=== PATIENT | female | born 1995 | race Caucasian/White ===

== ENCOUNTER 2018-05-20 22:31 | Observation (INO) | payer OTHER, SELFPAY ==
[2018-05-20] MEDS ORDERED: ONDANSETRON 4 MG/2 ML VIAL IV PRN (23:05)
[2018-05-20] MEDS ORDERED: ACETAMINOPHEN 500 MG TAB PO PRN (23:05)
[2018-05-20] MEDS ORDERED: MORPHINE 2 MG/ML SYR IV PRN (23:05)
[2018-05-20 23:50] LABS: Absolute Lymphocytes (CBC) 2.1 K/uL (0.7-4.9); Absolute Monocytes 0.4 K/uL (0.1-1.3); Absolute Neutrophil 6.3 K/uL (1.8-8.0); Basophils % 0.3 % (0-1.3); Eosinophils % 1.2 % (0-4.4); Hematocrit 26.6 % (36.0-45.0); MCH 28.2 pg (27.0-35.0); MCV 83.8 fL (80-100); MPV 8.6 fL (7.6-11.3); RBC Red Blood Cell Count 3.17 M/uL (3.86-4.86)
[2018-05-20 23:51] LABS: Protime INR 0.92
[2018-05-21 00:02] LABS: ALT/SGPT 32 U/L (12-78); AST/SGOT 36 U/L (15-37); Albumin 2.4 g/dL (3.4-5.0); Alkaline Phosphatase 133 U/L (45-117); BUN Blood Urea Nitrogen 7 mg/dL (7-18); Bicarbonate 25 mmol/L (21-32); Bilirubin Total 0.3 mg/dL (0.2-1.0); CKMB Creatine Kinase MB 1.4 ng/mL (0.3-3.6); Creatine Phosphokinase 169 U/L (26-192); Glucose Level 83 mg/dL (74-106); Protein, Total 6.1 g/dL (6.4-8.2); Sodium Level 141 mmol/L (136-145)
[2018-05-21] MEDS ORDERED: SODIUM CHLORIDE 0.9% 10ML INJ IV PRN ×2 (00:26→07:06)
[2018-05-21] MEDS ORDERED: PANTOPRAZOLE 40 MG INJ IVP ONE (00:26)
[2018-05-21] MEDS ORDERED: FUROSEMIDE 20 MG/ 2ML VIAL IV ONE (00:26)
[2018-05-21] MEDS ORDERED: MELATONIN 3 MG TABLET PO SCH (00:26)
[2018-05-21] MEDS ORDERED: ALBUMIN HUMAN 25% 100 ML IV ONE (00:26)
--- NOTE | 2018-05-21 06:32 | RAD REPORT ---
EXAM DESCRIPTION: VAS - Extrem Venous W Compress [place] - 05/21/2018 1:49 am CLINICAL HISTORY: Bilateral leg pain and swelling, recent Preliminary findings provided at the time of the study. COMPARISON: None. TECHNIQUE: Real-time sonographic evaluation of the bilateral lower extremity deep venous systems was performed. FINDINGS: Normal compressibility, flow augmentation, phasic flow and spontaneous flow are identified in the bilateral lower extremity common femoral, superficial femoral, popliteal and posterior tibial veins. No intraluminal filling defects seen. Bilateral calf edema was present. No drainable fluid co llection. IMPRESSION: No DVT in the either lower extremity.
--- NOTE | 2018-05-21 07:05 | P.HP ---
Certification for Inpatient Patient admitted to: Inpatient With expected LOS: >2 Midnights Patient will require the following post-hospital care: None Practitioner: I am a practitioner with admitting privileges, knowledge of patient current condition, hospital course, and medical plan of care. Services: Services provided to patient in accordance with Admission requirements found in Title 42 Section 412.3 of the Code of Federal Regulations Patient History Date of Service: 05/20/18 Reason for admission: Fluid overload History of Present Illness: Patient is a 23-year-old female who came into the hospital with complaints of shortness of breath and volume overload. She has also been slightly short of breath and says she has been vomiting some blood tinged color looking fluid. She says she has had really bad gastroesophageal reflux disease during her . She has been on Prevacid. This has not really helped her. She just delivered on Sunday of this past week. Because the baby was not doing well today had to do an emergent . She says she was given a large volume of fluids and she had fluids running from Sunday through Sunday. Her blood pressure normally runs on the lower side and she had a lower blood pressure through the weekend. She was discharged home and yesterday she started becoming short of breath. She had been taking a large amount of ibuprofen as well. She has been taking 600 mg every 4-6 hours regularly over the last 48 hr. I think this is cause of volume retention as well as possibly some gastritis. She is anemic, age she has significant lower extremity edema. We ordered a stat Doppler of her lower extremity as I did not want to give her blood thinners unnecessarily with the concern for bleeding. The Doppler was negative. She had a CT PE protocol done at the emergency room across the street which was negative as well. Will go ahead and admit her to the hospital and get Cardiology consultation as well as Gastroenterology consultation. We will check thyroid studies this morning as well as check her H&H closely. Allergies No Known Allergies Allergy (Verified 05/20/18 23:25) Home Medications: Acetaminophen 500 mg PO Q4HR 05/20/18 Ferrous Sulfate [Iron] 325 mg PO DAILY 05/20/18 Ibuprofen [Ibu] 600 mg PO Q6HR 05/20/18 - Past Medical/Surgical History Diabetic: No -: none -: (05/17/18 ) - Family History Father Medical History: Heart disease, Hypertension Mother Notes: no history - Social History Smoking Status: Former smoker Alcohol use: Yes CD- Drugs: No Caffeine use: Yes Place of Residence: Home Review of Systems 10-point ROS is otherwise unremarkable Physical Examination - Vital Signs Temperature: 97.5 F Blood Pressure: 139/82 Pulse: 50 Respirations: 18 Pulse Ox (%): 100 - Physical Exam General: Alert, In no apparent distress, Oriented x3 HEENT: Atraumatic, PERRLA, Mucous membr. moist/pink, EOMI, Sclerae nonicteric Neck: Supple, 2+ carotid pulse no bruit, No LAD, Without JVD or thyroid abnormality Respiratory: Clear to auscultation bilaterally, Normal air movement Cardiovascular: Regular rate/rhythm, Normal S1 S2, No murmurs Gastrointestinal: Normal bowel sounds, Soft and benign, Non-distended, No tenderness Musculoskeletal: No tenderness, Swelling, Erythema Integumentary: No rashes Neurological: Normal gait, Normal speech, Normal strength at 5/5 x4 extr, Normal tone, Sensation intact, Cranial nerves 3-12 intact, Normal affect Lymphatics: No axilla or inguinal lymphadenopathy - Studies Laboratory Data (last 24 hrs) 05/20/18 23:26: Troponin I 0.04 05/20/18 23:26: Sodium 141, Potassium 4.0, BUN 7, Creatinine 0.60, Glucose 83, Total Bilirubin 0.3, AST 36, ALT 32, Alkaline Phosphatase 133 H 05/20/18 23:26: PT 10.9, INR 0.92, APTT 30.2 05/20/18 23:26: WBC 8.9, Hgb 8.9 L, Hct 26.6 L, Plt Count 441 H Assessment & Plan - Problems (Diagnosis) (1) Bilateral lower extremity edema Current Visit: Yes Status: Acute (2) Excessive use of nonsteroidal anti-inflammatory drugs (NSAIDs) Current Visit: Yes Status: Acute (3) Gastritis Current Visit: Yes Status: Acute (4) GERD (gastroesophageal reflux disease) Current Visit: Yes Status: Acute (5) HTN (hypertension) Current Visit: Yes Status: Acute (6) Bradycardia Current Visit: Yes Status: Acute (7) Hypoalbuminemia Current Visit: Yes Status: Acute (8) Acute blood loss anemia Current Visit: Yes Status: Acute - Plan Plan: 1. Monitor H&H 2. Gently diurese 3. Cardiology consultation along with echocardiogram 4. Doppler of the lower extremity has been negative 5. Hold anticoagulation 6. GI consultation 7. Check thyroid studies 8. GI and DVT prophylaxis. - Advance Directives Does patient have a Living Will: No Does patient have a Durable POA for Healthcare: No
[2018-05-21] MEDS ORDERED: PANTOPRAZOLE 40 MG INJ IVP SCH (09:00)
--- NOTE | 2018-05-21 10:15 | ECHO ---
HEIGHT: 5 ft 1 in WEIGHT: 168 lb 4.8 oz DATE OF STUDY: 05/21/[address]: Khoa Javier MD 2-DIMENSIONAL: YES M.MODE: YES DOPPLER: YES COLOR FLOW: YES TDS: NO PORTABLE: NO DEFINITY: NO BUBBLE STUDY: NO DIAGNOSIS: CONGESTIVE HEART FAILURE CARDIAC HISTORY: CATHERIZATION: NO SURGERY: NO PROSTHETIC VALVE: NO PACEMAKER: NO MEASUREMENTS (cm) DIASTOLIC (NORMALS) SYSTOLIC (NORMALS) IVSd 0.8 (0.6-1.2) LA Diam 3.6 (1.9-4.0) LVEF 56% LVIDd 4.7 (3.5-5.7) LVIDs 3.4 (2.0-3.5) %FS 29% LVPWd 0.8 (0.6-1.2) Ao Diam 2.5 (2.0-3.7) 2 DIMENSIONAL ASSESSMENT: RIGHT ATRIUM: NORMAL LEFT ATRIUM: NORMAL RIGHT VENTRICLE: NORMAL LEFT VENTRICLE: NORMAL TRICUSPID VALVE: NORMAL MITRAL VALVE: NORMAL PULMONIC VALVE: NORMAL AORTIC VALVE: NORMAL PERICARDIAL EFFUSION: NONE AORTIC ROOT: NORMAL LEFT VENTRICULAR WALL MOTION: NORMAL DOPPLER/COLOR FLOW: MILD MITRAL AND TRICUSPID REGURGITATION. ESTIMATED RIGHT VENTRICULAR SYSTOLIC PRESSURE 40mmHg. MILD PULMONARY HYPERTENSION. ESTIMATED RIGHT ATRIAL PRESSURE 15mmHg. ELEVATED CENTRAL VENOUS PRESSURE. COMMENTS: NORMAL 2D ECHOCARDIOGRAM. MILD MITRAL AND TRICUSPID REGURGITATION. MILD PULMONARY HYPERTENSION WITH ELEVATED CENTRAL VENOUS PRESSURE. TECHNOLOGIST: Deana FERREIRA
--- NOTE | 2018-05-21 11:43 | CON ---
Reason For Consultation: Bradycardia. History Of Present Illness: Ms. Parr is a 23-year-old. She delivered last Sunday, was a full-ter m . She is now 1, para 1. She was being induced when there was distress, so an emergency was done. Postop, she was hypotensive and received large amount of fluids. O patrick the weekend, noticed swelling of her legs, came to the hospital, and also short of breath. Dr. Valerie lopez placed her in the hospital, noted she was bradycardic. She has had blood work showing anemia. T hyroid functions are pending. Electrolytes, BUN, creatinine, blood sugars are all good. She has nev er had diabetes, hypertension. Takes no medicines. Has no drug allergies. Physical Examination: Vital Signs: 5 feet 1 inch, 168 pounds. HEENT: Normal. Lungs: Clear. Heart: Regular rate and rhythm. No murmur, rub, or gallop. Abdomen: Soft. Extremities: 1 to 2+ edema. Distal pulses normal. I think after we see an echocardiogram and thyroid functions, we will be able to decide whether this is situational, just temporary because of fluid overload after mildly trouble delivery or we dealing with cardiomyopathy. So, I will speak with the patient again after thyroid functions and echo are do ne. JEF/JAKY Voice ID: [id number] Report ID: [id number]
[2018-05-21 11:58] LABS: BUN Blood Urea Nitrogen 8 mg/dL (7-18); Bicarbonate 26 mmol/L (21-32); Glucose Level 95 mg/dL (74-106); Phosphorus 3.6 mg/dL (2.5-4.9); Potassium 3.6 mmol/L (3.5-5.1); Sodium Level 145 mmol/L (136-145)
[2018-05-21 12:11] LABS: Absolute Lymphocytes (CBC) 1.9 K/uL (0.7-4.9); Absolute Monocytes 0.4 K/uL (0.1-1.3); Absolute Neutrophil 4.7 K/uL (1.8-8.0); Basophils % 0.5 % (0-1.3); Eosinophils % 1.6 % (0-4.4); Hematocrit 26.3 % (36.0-45.0); Lymphocytes % 26.2 % (15.3-44.8); MCV 82.9 fL (80-100); MPV 8.4 fL (7.6-11.3); Monocytes % 6.1 % (3.3-12.3); RBC Red Blood Cell Count 3.17 M/uL (3.86-4.86)
--- NOTE | 2018-05-21 14:19 | P.DS ---
Admission Date: 05/20/18 Discharge Date: 05/21/18 Disposition: ROUTINE DISCHARGE Discharge Condition: FAIR Reason for Admission: Fluid overload - Problems (1) Bilateral lower extremity edema Status: Acute (2) Cardiomyopathy Onset Date: 05/21/18 Status: Acute (3) Excessive use of nonsteroidal anti-inflammatory drugs (NSAIDs) Status: Acute (4) GERD (gastroesophageal reflux disease) Status: Acute (5) Gastritis Status: Acute (6) HTN (hypertension) Status: Acute Brief History of Present Illness: Patient is a 23-year-old female who came into the hospital with complaints of shortness of breath and volume overload. She has also been slightly short of breath and says she has been vomiting some blood tinged color looking fluid. She says she has had really bad gastroesophageal reflux disease during her . She has been on Prevacid. This has not really helped her. She just delivered on Sunday of this past week. Because the baby was not doing well today had to do an emergent . She says she was given a large volume of fluids and she had fluids running from Sunday through Sunday. Her blood pressure normally runs on the lower side and she had a lower blood pressure through the weekend. She was discharged home and yesterday she started becoming short of breath. She had been taking a large amount of ibuprofen as well. She has been taking 600 mg every 4-6 hours regularly over the last 48 hr. I think this is cause of volume retention as well as possibly some gastritis. She is anemic, age she has significant lower extremity edema. We ordered a stat Doppler of her lower extremity as I did not want to give her blood thinners unnecessarily with the concern for bleeding. The Doppler was negative. She had a CT PE protocol done at the emergency room across the street which was negative as well. Will go ahead and admit her to the hospital and get Cardiology consultation as well as Gastroenterology consultation. We will check thyroid studies this morning as well as check her H&H closely. Hospital Course: She was admitted for fluid overload. She responds well to lLasix. She has small amount of bleeding with vomiting. No active bleedings. ECHO is normal. She is discharged in stable condition, on protonix PO, No NSAID, and f/u GI in 1 week. Vital Signs/Physical Exam: Temp Pulse Resp BP Pulse Ox 98.2 F 53 16 153/87 H 99 05/21/18 11:54 05/21/18 11:54 05/21/18 11:54 05/21/18 11:54 05/21/18 11:54 General: Alert, In no apparent distress HEENT: Atraumatic, PERRLA, EOMI Neck: Supple, JVD not distended Respiratory: Clear to auscultation bilaterally, Normal air movement Cardiovascular: Regular rate/rhythm, Normal S1 S2 Gastrointestinal: Normal bowel sounds, No tenderness Musculoskeletal: No tenderness Integumentary: No rashes Neurological: Normal speech, Normal tone, Normal affect Lymphatics: No axilla or inguinal lymphadenopathy Laboratory Data at Discharge: WBC 7.2 K/uL (4.3-10.9) D 05/21/18 12:00 Hgb 8.9 g/dL (12.0-15.0) L 05/21/18 12:00 Hct 26.3 % (36.0-45.0) L 05/21/18 12:00 Plt Count 418 K/uL (152-406) H 05/21/18 12:00 PT 10.9 SECONDS (9.5-12.5) 05/20/18 23:26 INR 0.92 05/20/18 23:26 APTT 30.2 SECONDS (24.3-36.9) 05/20/18 23:26 Sodium 145 mmol/L (136-145) 05/21/18 11:07 Potassium 3.6 mmol/L (3.5-5.1) 05/21/18 11:07 BUN 8 mg/dL (7-18) 05/21/18 11:07 Creatinine 0.70 mg/dL (0.55-1.3) 05/21/18 11:07 Glucose 95 mg/dL (74-106) 05/21/18 11:07 Phosphorus 3.6 mg/dL (2.5-4.9) 05/21/18 11:07 Magnesium 2.0 mg/dL (1.8-2.4) 05/21/18 11:07 Total Bilirubin 0.3 mg/dL (0.2-1.0) 05/20/18 23:26 AST 36 U/L (15-37) 05/20/18 23:26 ALT 32 U/L (12-78) 05/20/18 23:26 Alkaline Phosphatase 133 U/L (45-117) H 05/20/18 23:26 Troponin I 0.04 ng/mL (0.0-0.045) 05/20/18 23:26 Home Medications: Acetaminophen 500 mg PO Q4HR 05/20/18 Ferrous Sulfate [Iron] 325 mg PO DAILY 05/20/18 Melatonin [Melatonin*] 3 mg PO BEDTIME tablet 05/21/18 Pantoprazole Sodium [Protonix] 40 mg PO DAILY #30 tablet. 05/21/18 New Medications: Pantoprazole Sodium [Protonix] 40 mg PO DAILY #30 tablet. Diet: Regular Activity: Ad james Followup: Sana Fernandez PAC [ALLIED HEALTH PROFESSIONAL] - Chaitanya Villanueva MD [ASSOCIATE-ACTIVE - CAN ADMIT] - 1 Week Time spent managing pt's care (in minutes): 15
[2018-05-21] MEDS ORDERED: ENOXAPARIN 30 MG/0.3 ML SQ SCH (17:00)
--- NOTE | 2018-05-21 21:13 | EKG ---
Test Date: 2018-05-21 Test Time: 07:45:55 Case Making Machine Operator: TWYLA MEASUREMENT RESULTS: Intervals: Rate: 49 [place]: 146 QRSD: 68 QT: 504 QTc: 455 Whittaker: P: 35 [place]: 146 QRS: 14 T: 28 INTERPRETIVE STATEMENTS: Marked sinus bradycardia Low voltage QRS Cannot rule out Anterior infarct, age undetermined Abnormal ECG Compared to ECG 07/05/2016 13:52:12 Low QRS voltage now present Myocardial infarct finding now present Sinus rhythm no longer present Electronically Signed On 05-21-18 21:12:44 CDT by Robbie Lopez
== END 2018-05-21 14:07 | disposition home or self-care (01) ==
LOC: 4TH 22:54
PROVIDERS: ADMIT Hospitalist; ATTEND Internal Medicine Hematology & Oncology
DX: O12.05 Gestational edema, complicating the puerperium (principal); R00.1 Bradycardia, unspecified; O99.63 Diseases of the digestive system complicating the puerperium; K21.9 Gastro-esophageal reflux disease without esophagitis; K29.00 Acute gastritis without bleeding; T39.391A Poisoning by other nonsteroidal anti-inflammatory drugs [NSAID], accidental (unintentional), initial encounter; Y92.009 Unspecified place in unspecified non-institutional (private) residence as the place of occurrence of the external cause; O90.81 Anemia of the puerperium; D62 Acute posthemorrhagic anemia; Z87.891 Personal history of nicotine dependence; I08.1 Rheumatic disorders of both mitral and tricuspid valves
CPT/HCPCS: 36415; 80048; 80053; 82550; 82553; 83735; 84100; 84439; 84443; 84484; 85025; 85379; 85610; 85730; 93005; 93306; 93970; C9113; G0378; J1940; P9047

== ENCOUNTER 2020-08-06 08:29 | Emergency (ER) | payer SELFPAY ==
[2020-08-06 09:31] LABS: Absolute Lymphocytes (CBC) 2.8 K/uL (0.7-4.9); Basophils % 0.6 % (0-1.3); Hematocrit 40.5 % (36.0-45.0); Lymphocytes % 28.6 % (15.3-44.8); RBC Red Blood Cell Count 4.46 M/uL (3.86-4.86)
[2020-08-06 09:38] LABS: Urine Blood NEGATIVE (NEG); Urine Glucose NEGATIVE (NEG); Urine Protein NEGATIVE (NEG); Urine pH 7.5 (5.0-7.0)
[2020-08-06 09:57] LABS: ALT/SGPT 15 U/L (12-78); AST/SGOT 11 U/L (15-37); Albumin 4.2 g/dL (3.4-5.0); Alkaline Phosphatase 58 U/L (45-117); BUN Blood Urea Nitrogen 11 mg/dL (7-18); Bicarbonate 24 mmol/L (21-32); Bilirubin Direct < 0.1 mg/dL (0-0.2); Bilirubin Total 0.2 mg/dL (0.2-1.0); Glucose Level 84 mg/dL (74-106); NT PRO-BNP < 5 pg/mL (<125); Potassium 4.4 mmol/L (3.5-5.1); Protein, Total 7.9 g/dL (6.4-8.2); Sodium Level 140 mmol/L (136-145); Troponin (Emerg Dept Use Only) < 0.02 ng/mL (0.0-0.045)
--- NOTE | 2020-08-06 10:00 | RAD REPORT ---
EXAM DESCRIPTION: RAD - Chest Single View - 08/06/2020 9:32 am CLINICAL HISTORY: Chest tightness/SOB COMPARISON: September 2016 TECHNIQUE: AP portable chest image was obtained 08/06/2020 9:32 am . FINDINGS: Lungs are clear. Heart and vasculature are normal. No measurable pleural effusion and no p neumothorax. No acute bony abnormality seen. No acute aortic findings suspected. IMPRESSION: No acute cardiopulmonary process. No significant change from comparison.
--- NOTE | 2020-08-06 10:24 | EDPHYS ---
Physician Documentation [facility] Name: Kishan Parr Age: 25 yrs Sex: Female : 1995 Arrival Date: 08/06/2020 Time: 08:37 Bed 4 Private MD: ED Physician Peewee Clarke HPI: 08/06 13:34 This 25 yrs old Female presents to ER via Ambulatory with complaints of Chest kdr Tightness. 13:34 The patient or guardian reports chest pain that is located primarily in the anterior kdr chest wall, left, chest diffusely. The pain does not radiate. Associated signs and symptoms: The patient has no apparent associated signs or symptoms. The chest pain is described as aching, a pressure. Duration: The patient or guardian reports multiple episodes, that are intermittent, that wax and wane, with no pattern. Modifying factors: The symptoms are alleviated by nothing. the symptoms are aggravated by nothing. Severity of pain: At its worst the pain was mild in the emergency department the pain has resolved. The patient has not experienced similar symptoms in the past. The patient has not recently seen a physician. 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 - Social history:: Smoking status: Patient reports the use of cigarette tobacco products, 1 pack per week. ROS: 13:34 Constitutional: Negative for fever, chills, and weight loss, Eyes: Negative for injury, kdr pain, redness, and discharge, ENT: Negative for injury, pain, and discharge, Neck: Negative for injury, pain, and swelling, Respiratory: Negative for shortness of breath, cough, wheezing, and pleuritic chest pain, Abdomen/GI: Negative for abdominal pain, nausea, vomiting, diarrhea, and constipation, Back: Negative for injury and pain, : Negative for injury, bleeding, discharge, and swelling, MS/Extremity: Negative for injury and deformity, Skin: Negative for injury, rash, and discoloration, Neuro: Negative for headache, weakness, numbness, tingling, and seizure activity. Psych: Negative for depression, anxiety, suicide ideation, homicidal ideation, and hallucinations, Allergy/Immunology: Negative for hives, rash, and allergies, Endocrine: Negative for neck swelling, polydipsia, polyuria, polyphagia, and marked weight changes, Hematologic/Lymphatic: Negative for swollen nodes, abnormal bleeding, and unusual bruising. 13:34 Cardiovascular: Positive for chest pain, Negative for edema, orthopnea, palpitations. Exam: 13:17 ECG was reviewed by the Attending Physician. kdr 13:34 Constitutional: This is a well developed, well nourished patient who is awake, alert, kdr and in no acute distress. Head/Face: Normocephalic, atraumatic. Eyes: Pupils equal round and reactive to light, extra-ocular motions intact. Lids and lashes normal. Conjunctiva and sclera are non-icteric and not injected. Cornea within normal limits. Periorbital areas with no swelling, redness, or edema. Neck: Trachea midline, no thyromegaly or masses palpated, and no cervical lymphadenopathy. Supple, full range of motion without nuchal rigidity, or vertebral point tenderness. No Meningismus. Chest/axilla: Normal chest wall appearance and motion. Nontender with no deformity. No lesions are appreciated. Cardiovascular: Regular rate and rhythm with a normal S1 and S2. No gallops, murmurs, or rubs. Normal PMI, no JVD. No pulse deficits. Respiratory: Lungs have equal breath sounds bilaterally, clear to auscultation and percussion. No rales, rhonchi or wheezes noted. No increased work of breathing, no retractions or nasal flaring. Abdomen/GI: Soft, non-tender, with normal bowel sounds. No distension or tympany. No guarding or rebound. No evidence of tenderness throughout. Back: No spinal tenderness. No costovertebral tenderness. Full range of motion. Skin: Warm, dry with normal turgor. Normal color with no rashes, no lesions, and no evidence of cellulitis. MS/ Extremity: Pulses equal, no cyanosis. Neurovascular intact. Full, normal range of motion. Neuro: Awake and alert, GCS 15, oriented to person, place, time, and situation. Cranial nerves II-XII grossly intact. Motor strength 5/5 in all extremities. Sensory grossly intact. Cerebellar exam normal. Normal gait. Psych: Awake, alert, with orientation to person, place and time. Behavior, mood, and affect are within normal limits. Vital Signs: 08:48 BP 113 / 60; Pulse 81; Resp 16 S; Pulse Ox 100% on R/A; Weight 60.78 kg; Height 5 ft. 1 iw in. (154.94 cm); Pain 8/10; 10:07 BP 105 / 72; Pulse 86; Resp 18; Pulse Ox 98% on R/A; em 08:48 Body Mass Index 25.32 (60.78 kg, 154.94 cm) iw MDM: 10:22 Patient medically screened. kdr 13:34 Data reviewed: vital signs, nurses notes, lab test result(s), radiologic studies. kdr Counseling: I had a detailed discussion with the patient and/or guardian regarding: the historical points, exam findings, and any diagnostic results supporting the discharge/admit diagnosis, lab results, radiology results, the need for outpatient follow up. 08/06 09:02 Order name: D-Dimer; Complete Time: 10: kdr 08/06 09:02 Order name: Basic Metabolic Panel; Complete Time: 10: kdr 08/06 09:02 Order name: CBC with Diff; Complete Time: 10: kdr 08/06 09:03 Order name: LFT's; Complete Time: 10: kdr 08/06 09:03 Order name: Magnesium; Complete Time: 10: kdr 08/06 09:03 Order name: NT PRO-BNP; Complete Time: 10: kdr 08/06 09:03 Order name: Troponin (emerg Dept Use Only); Complete Time: 10: kdr 08/06 09:03 Order name: XRAY Chest (1 view); Complete Time: 10: kdr 08/06 09:03 Order name: EKG; Complete Time: : kdr 08/06 09:03 Order name: Cardiac monitoring; Complete Time: 09:14 kdr 08/06 09:03 Order name: EKG - Nurse/Tech; Complete Time: 09: kdr 08/06 09:03 Order name: IV Saline Lock; Complete Time: 09:14 kdr 08/06 09:21 Order name: Urine Dipstick--Ancillary (enter results); Complete Time: 10:21 em1 08/06 09:21 Order name: Urine --Ancillary (enter results); Complete Time: 10: em1 08/06 09:03 Order name: Labs collected and sent; Complete Time: : kdr 08/06 09:03 Order name: O2 Per Protocol; Complete Time: : kdr 08/06 09:03 Order name: O2 Sat Monitoring; Complete Time: : [facility] EC:17 Rate is 73 beats/min. Rhythm is regular, Sinus Rhythm with No ectopy. QRS Cushing is kdr Normal. NE interval is normal. QRS interval is normal. QT interval is normal. Clinical impression: NSR w/ Non-specific ST/T Changes. Administered Medications: No medications were administered Disposition: 08/06/20 10:22 Discharged to Home. Impression: Chest pain, unspecified, Dyspnea, Shortness of breath. - Condition is Stable. - Discharge Instructions: Shortness of Breath, [id number], Nonspecific Chest Pain, [id number]. - Medication Reconciliation Form, Thank You Letter form. - Follow up: Private Physician; When: 2 - 3 days; Reason: If symptoms return, Further diagnostic work-up, Recheck today's complaints, Continuance of care, Re-evaluation by your physician. - Problem is new. - Symptoms have improved. Signatures: Dispatcher [employer] EDPeewee Martinez MD MD kdr Yovany Haas, ROSALINDA RN em Sinai Burch RN RN iw Corrections: (The following items were deleted from the chart) 10:23 10:22 08/06/2020 10:22 Discharged to Home. Impression: Chest pain, unspecified. kdr Condition is Stable. Forms are Medication Reconciliation Form, Thank You Letter, Antibiotic Education, Prescription Opioid Use. Follow up: Private Physician; When: 2 - 3 days; Reason: If symptoms return, Further diagnostic work-up, Recheck today's complaints, Continuance of care, Re-evaluation by your physician. Problem is new. Symptoms have improved. kdr 10:24 10:23 08/06/2020 10:22 Discharged to Home. Impression: Chest pain, unspecified; kdr Dyspnea. Condition is Stable. Forms are Medication Reconciliation Form, Thank You Letter, Antibiotic Education, Prescription Opioid Use. Follow up: Private Physician; When: 2 - 3 days; Reason: If symptoms return, Further diagnostic work-up, Recheck today's complaints, Continuance of care, Re-evaluation by your physician. Problem is new. Symptoms have improved. kdr 10:48 10:24 08/06/2020 10:22 Discharged to Home. Impression: Chest pain, unspecified; em Dyspnea; Shortness of breath. Condition is Stable. Discharge Instructions: Nonspecific Chest Pain, [id number]. Forms are Medication Reconciliation Form, Thank You Letter, Antibiotic Education, Prescription Opioid Use. Follow up: Private Physician; When: 2 - 3 days; Reason: If symptoms return, Further diagnostic work-up, Recheck today's complaints, Continuance of care, Re-evaluation by your physician. Problem is new. Symptoms have improved. kdr
--- NOTE | 2020-08-06 10:24 | ER ---
Nurse's Notes [facility] Name: Kishan Parr Age: 25 yrs Sex: Female : 1995 Arrival Date: 08/06/2020 Time: 08:37 Bed 4 Private MD: Diagnosis: Chest pain, unspecified;Dyspnea;Shortness of breath Presentation: 08/06 08:46 Chief complaint: Patient states: has hx of cardiomyopathy, started having chest iw tightness a few weeks ago, got worse this morning, now feels like she can't get a good breath in, denies cough or fever. Coronavirus screen: Ebola Screen: Patient negative for fever greater than or equal to 101.5 degrees Fahrenheit, and additional compatible Ebola Virus Disease symptoms Patient denies exposure to infectious person. Patient denies travel to an Ebola-affected area in the 21 days before illness onset. No symptoms or risks identified at this time. Initial Sepsis Screen: Does the patient meet any 2 criteria? No. Patient's initial sepsis screen is negative. Does the patient have a suspected source of infection? No. Patient's initial sepsis screen is negative. Risk Assessment: Do you want to hurt yourself or someone else? Patient reports no desire to harm self or others. Onset of symptoms was July 22, 2020. 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 - Social history:: Smoking status: Patient reports the use of cigarette tobacco products, 1 pack per week. Screenin:00 Abuse screen: Denies threats or abuse. Nutritional screening: No deficits noted. em Tuberculosis screening: No symptoms or risk factors identified. Fall Risk None identified. Assessment: 09:00 General: Appears in no apparent distress. comfortable, Behavior is calm, cooperative, em appropriate for age, Denies fever. Pain: Complains of pain in mid-sternal area Pain does not radiate. Quality of pain is described as tightness Pain began weeks ago. Neuro: Level of Consciousness is awake, alert, obeys commands, Oriented to person, place, time, situation, Appropriate for age. Cardiovascular: Reports shortness of breath, Capillary refill < 3 seconds Patient's skin is warm and dry. Rhythm is sinus rhythm. Respiratory: Airway is patent Respiratory effort is even, unlabored, Respiratory pattern is regular, symmetrical. GI: Patient currently denies nausea, vomiting. Derm: Skin is intact. Musculoskeletal: Capillary refill < 3 seconds, Range of motion: intact in all extremities. 10:10 Reassessment: Patient appears in no apparent distress at this time. Patient and/or em family updated on plan of care and expected duration. Pain level reassessed. Patient is alert, oriented x 3, equal unlabored respirations, skin warm/dry/pink. Vital Signs: 08:48 BP 113 / 60; Pulse 81; Resp 16 S; Pulse Ox 100% on R/A; Weight 60.78 kg; Height 5 ft. 1 iw in. (154.94 cm); Pain 8/10; 10:07 BP 105 / 72; Pulse 86; Resp 18; Pulse Ox 98% on R/A; em 08:48 Body Mass Index 25.32 (60.78 kg, 154.94 cm) iw ED Course: 08:37 Patient arrived in ED. as 08:45 Peewee Clarke MD is Attending Physician. kdr 08:46 Yovany Haas, RN is Primary Nurse. em 08:48 Triage completed. iw 09:00 Patient has correct armband on for positive identification. Bed in low position. Call em light in reach. Side rails up X2. court monitor on. Pulse ox on. NIBP on. 09:10 Initial lab(s) drawn, by me, sent to lab. Inserted saline lock: 20 gauge in right em antecubital area, using aseptic technique. Blood collected. Patient maintains SpO2 saturation greater than 95% on room air. 09:33 XRAY Chest (1 view) In Process Unspecified. EDMS 10:47 No provider procedures requiring assistance completed. IV discontinued, intact, em bleeding controlled, No redness/swelling at site. Pressure dressing applied. Administered Medications: No medications were administered Outcome: 10:22 Discharge ordered by . kdr 10:47 Discharged to home ambulatory. em 10:47 Condition: stable 10:47 Discharge instructions given to patient, Instructed on discharge instructions, follow up and referral plans. Demonstrated understanding of instructions, follow-up care. 10:48 Patient left the ED. em Signatures: Dispatcher [employer] Peewee Luther MD MD kdr Munoz, Edgar, RN RN Jazmine Esocbar Irene, RN RN iw
[2020-08-06 10:57] VITALS: BP 105/72; O2SAT 98
--- NOTE | 2020-08-06 17:51 | EKG ---
Test Date: 2020-08-06 Test Time: 08:49:28 Pleating Machine Operator: JOHNNY MEASUREMENT RESULTS: Intervals: Rate: 73 [place]: 122 QRSD: 66 QT: 376 QTc: 414 [place]: P: 25 [place]: 122 QRS: 30 T: 26 INTERPRETIVE STATEMENTS: Normal sinus rhythm with sinus arrhythmia Normal ECG Compared to ECG 05/21/2018 07:45:55 Sinus bradycardia no longer present Myocardial infarct finding no longer present Electronically Signed On 08-06-20 17:49:57 CDT by Jim Mccall
== END 2020-08-06 10:48 | disposition home or self-care (01) ==
LOC: ER 08:29
DX: R06.00 Dyspnea, unspecified (principal); R06.02 Shortness of breath; F17.210 Nicotine dependence, cigarettes, uncomplicated
CPT/HCPCS: 36415; 71045; 80048; 80076; 81003; 81025; 83735; 83880; 84484; 85025; 85379; 93005; 99285

== ENCOUNTER 2022-07-05 15:16 | Emergency (ER) | payer SELFPAY ==
--- OUTSIDE RECORDS SUMMARY | 2022-07-05 15:19 | XMS REPORT | Continuity of Care Document ---
:1995 Author Organization [facility] t Address [address] [place] [address] Care Team Providers Name Role Phone PCP, PATIENT DOES NOT HAVE A Primary Care Physician Unavaila Garrett [place] Attending Clinician Unavailable MURTAZA LAYNE Attending Clinician Unavailable Murtaza Layne MD Attending Clinician Diony Hicks Attending Clinician Unavailable Lauryn Page MD Attending Clinician LAURYN PAGE Attending Clinician Unavailable Garrett Tse Admitting Clinician Unavailable MURTAZA LAYNE Admitting Clinician Unavailable Diony Hicks Admitting Clinician Unavailable Lauryn Page MD Admitting Clinician LAURYN PAGE Admitting Clinician Unavailable Trinity Méndez Admitting Clinician Unavailable Payers Payer Name Policy Type Policy Number Effective Date Expiration Date [facility] [id number] 2021 CHOICE MEDICAID 00:00:00 Problems Condition Condition Condition Status Onset Resolution Last Treating Co mments Source Name Details Category Date Date Treatment Clinician Date Urinary Urinary Disease Active Univers tract tract 6-08 [place] of [place] mother 00 [facility] during during Branch , , antepartum antepartum Disease Active Univers uterine uterine 604 [place] of [place] 00 [facility] third third Branch trimester, trimester, antepartum antepartum Acute Acute Disease Active Univers cystitis cystitis 604 ity of with with 00:00: [place] hematuria hematuria 00 [facility] Branch Acute left Acute left Disease Active U nivers flank pain flank pain 6-04 it y of 00:00: [place] 00 Medical Branch 29 weeks 29 weeks Disease Active Unive rs gestation gestation 604 ity of of of 00:00: [place] 00 [facility] Allergies, Adverse Reactions, Alerts Allergy Allergy Status Severity Reaction(s) Onset Inactive Treating Comm ents Source Name Type Date Date Clinician No Known DA Active U 2020-10 [facility] 00 [facility] No Known DA Active U [facility] All[facility]ie 8-09 [facility] 00:[facility]: [facility] 00 [facility] No Known DA Active U [facility] Allergie 8-09 [facility] 00:[facility]: [facility] 00 [facility] NO KNOWN Drug Active Univers ALLERGIE Class ity of S [facility] Social History Social Habit Start Date Stop Date Quantity Comments Source Exposure to 2022-04-16 2022-04-26 Not sure [facility] SARS-CoV-2 (event) 00:00:00 21:58:00 Medica l Branch Sex Assigned At [birth year] [facility] y of [place] 00:00:00 00:00:00 Medical Branch Smoking Status Start Date Stop Date Source Tobacco smoking consumption Univ [facility] Medical unknown Branch Medications Ordered Filled Start Stop Current Ordering Indication Dosage Frequency Signature Comments Components Source Medication Medication Date Date Medication? Clinician (SIG) Name Name No known No No known Unive rs medications 7-20 medication it y of 19:30: [place] [address] Medical Branch No known No Univers medications 9-17 ity of 20:46: [place] 14 Medical Branch No known No Univers medications 9-17 ity of 20:46: [address] Vital Signs Vital Name Observation Time Observation Value Comments Source Systolic blood 2022-04-27 01:00:00 104 mm[Hg] Univer sity of pressure [facility] Diastolic blood 2022-04-27 01:00:00 74 mm[Hg] Unive rsity of pressure [facility] Heart rate 2022-04-27 01:00:00 81 /min Universi ty of [facility] Respiratory rate 2022-04-27 01:00:00 18 /min Univ ersity of [facility] Oxygen saturation in 2022-04-27 01:00:00 100 /min University of Arterial blood by [facility] francis Pulse oximetry Branch Body temperature 2022-04-26 23:32:00 37.44 Marisol Univ ersity of [facility] Body height 2022-04-26 23:32:00 154.9 cm Universi ty of [facility] Body weight 2022-04-26 23:32:00 58.968 kg Universi ty of [facility] BMI 2022-04-26 23:32:00 24.56 kg/m2 Universi ty of [facility] Heart rate 2021-06-25 01:15:00 75 /min Universi ty of [facility] Oxygen saturation in 2021-06-25 01:10:00 100 /min University of Arterial blood by [facility] Pulse oximetry Branch Systolic blood 2021-06-24 23:45:00 109 mm[Hg] Univer sity of pressure [facility] Diastolic blood 2021-06-24 23:45:00 62 mm[Hg] Unive rsity of pressure [facility] Body temperature 2021-06-24 23:45:00 37.39 Marsiol Univ ersity of [facility] Respiratory rate 2021-06-24 23:20:00 16 /min Univ ersity of [facility] Body height 2021-06-24 23:20:00 154.9 cm Universi ty of [place] [facility] [place] Body weight 2021-06-24 23:20:00 66.679 kg [facility]i ty [facility] [place] [facility] [place] BMI 2021-06-24 23:20:00 27.78 kg/m2 Universi ty of [facility] Procedures Procedure Date / Time Performed Performing Clinician Sourc e URINALYSIS 2022-04-27 01:21:00 Murtaza Layne [facility] TROPONIN I 2022-04-27 00:23:00 Murtaza Layne [facility] BASIC METABOLIC PANEL 2022-04-27 00:23:00 Murtaza Layne [facility] (NA, K, CL, CO2, Medical Branch GLUCOSE, BUN, CREATININE, CA) CBC WITH DIFF 2022-04-27 00:23:00 Murtaza Layne [facility] D-DIMER 2022-04-27 00:23:00 Murtaza Layne [facility] XR CHEST 1 VW 2022-04-27 00:18:34 Murtaza Layne [facility] CONSENT/REFUSAL FOR 2022-04-26 23:26:40 Doctor Unassigned, [facility] AND Name [facility] Branch TREATMENT [id number] 2021-09-03 00:00:00 PIETER [facility] COVID-19 (ID NOW RAPID 2021-06-25 00:42:00 Lauryn Page [facility] TESTING) Medical Branch NOTICE OF PRIVACY 2021-06-24 23:13:22 Doctor Unassigned, No [facility] PRACTICES Name Medical Branch CONSENT/REFUSAL FOR 2021-06-24 23:11:45 [facility]assigned, [facility] AND Name [facility] Branch TREATMENT Encounters Start End Encounter Admission Attending Care Care Encounter Source Date/Time Date/Time Type Type Clinicians Facility Department ID 2021-09-07 Inpatient HAMLET Tse [facility] [id number] [facility] 10:00:[address] [place] [address]'s [facility] 2022-04-26 2022-04-26 Emergency X ROVERTO [facility] ERT [id number] Univers 18:42:00 22:00:00 MURTAZA olivas [facility] 2022-04-26 2022-04-26 Emergency Roverto [facility] [id number] Univers 18:42:00 22:00:00 Murtaza SINGH [id number] i [facility] [id number] [facility] [id number] [facility] 084 Branch 2021-09-03 2021-09-05 Emergency EM LIBORIO Hicks OBPP [id number] [facility] 01:41:00 19:53:00 Ziad [facility] [place] 2021-08-31 2021-08-31 Inpatient LIBORIO Leon RADI [id number] [facility] 11:15:00 11:15:00 Ziad 97 [facility] [place] 2021-08-18 2021-08-18 Emergency EM LIBORIO Hicks [place] [id number] [facility] 17:35:00 21:43:00 Ziad 87 [facility] [place] 2021-06-24 2021-06-24 Emergency Lauryn Page [facility] [id number] [facility] 18:26:00 20:53:00 [place] [id number] i [facility] [id number] [facility] [id number] [place] [id number] [place] 2021-06-24 2021-06-24 Outpatient X LAURYN PAGE [facility] JAIME [id number] [facility] 18:26:00 18:26:00 ity of [facility] 2021-04-18 2021-04-18 Outpatient HAMLET Hicks [facility] RADI [id number] [facility] 11:03:00 11:03:00 Ziad [facility] Results Test Description Test Time Test Comments Results Result Comments Source SURGICAL 2021-09-12 17:25:00 Test Item Value Reference Range Interpretation Commjose hatfield SURGICAL RUN (test DATE: 09/12/21 [facility] PAGE 1 RUN TIME: 1725 Specimen Inquiry RUN USER: INTERFACE code = EMMANUEL SR) NT: NABILA MEJIAS ACCT #: [id number] LOC: W[place]ER U #: [id number] AGE/SX: 26/ ROOM: 2007 RE09/03/21REG DR: Diony Hicks MD : [birth year] BED: A DIS: 09/05/21 STATUS: DIS IN TLOC: SPEC #: [id number] RECD: 08/09 STATUS: [facility] RE #: [id number] JORGE L: 09/02/21- SUBM DR: Diony Hicks MD ENTERED: SP TYPE: SURGICAL OTHR DR: DOES_NOT KNOW ORDERED: ANATOMIC SPEC, SPEC TRACK, [id number] CODES: [id number] - PLACENTA, NOS COPIES TO: DOES_NOT KNOW Diony Hicks MD [address] [place] [address] PROCEDURES: [id number] (09/12/21-172) TISSUES: PETEY CENTA, NOS - PP CARDIOMYOPATHY, IAB 120, FINAL DIAGNOSIS PLACENTA :- Mature villous morphology, 6 05 grams, ( 90th percentile for gestational age). - Mild multifocal villitis of undetermined quincy ology.- Three vessel umbilical cord with no significant diagnostic abnormalities. - membr anes with abundant pigmented amnionic macrophages. GROSS DESCRIPTION Received in formalin is a si ngleton placenta with the placental disc measuring 19 x 19 x 2cm and weighing 605 gm with a 1.4 c m in diameter by 15 cm length eccentric 3 cm from edge,3 vessel cord with appropriate spiraling. The membranes are [place] and opaque with marginalinsertion with the site of rupture 1 cm from the petey cental disc. The placental disc has abeefy red cut surface with no gross lesions. Representativ e sections are submitted asfollows: A1: Membrane roll and cordA2: Full thickness placental dis cA3: Full thickness placental disc at edge LC Technical component performed at [facility],[place] [address] , [place] [address] Unless gross only, the diagnosis is based upon microscopic examination. CONTINUED ON NE XT PAGE RUN DATE: 09/12/21 [facility] RUN TIME: 1725 Specimen Inquiry RUN USER: INTERFACE SPEC #: [id number] PATIENT: NABILA MEJIAS #[id number] (Continued) ------ GROSS DESCRIPTION (Co ntinued) Immunohistochemistry: This test was developed and its performance characteristicsd etermined by this laboratory. It has not been approved nor does it need approval by Heather FDA. Appropriate positive and negative controls are reviewed and judged to beacceptable. This laborator y is certified under the Clinical Laboratory ImprovementAmendments (CLIA-88) as qualified to pe [facility] high complexity clinical laboratory testing. CLINICAL INFORMATION PRE-C Signed [address] 09/12/21 1725 END OF REPORT HGB [id number] 04:48:00 Test Item Value Reference Range Interpretation Comments HEMOGLOBIN (test code = HGB) 7.7 g/dL 10.1-13.8 L HEMATOCRIT (test code = HCT) 23.8 % 32.5-41.8 L CAPILLARY BLOOD [id number] 03:26:00 Test Item Value Reference Range Interpretation Comments CAPILLARY BLOOD GAS PH (test code 7.376 7.35-7.45 N = PHC) CAPILLARY BLOOD GAS PCO2 (test 34.4 mmHg code = PCO2C) CAPILLARY BLOOD GAS PO2 (test code 22.7 mmHg = PO2C) CBG HCO3 (test code = HCO3C) 19.7 meq/L CBG BASE EXCESS (test code = BEC) -4.6 CBG O2 SATURATION (test code = 38.6 % SATC) CAPILLARY BLOOD GAS TYPE (test CBLV code = TYPEC) CAPILLARY BLOOD GAS FIO2 (test 21.0 % code = FIO2C) ARTERIAL BLOOD [id number] 03:26:00 Test Item Value Reference Range Interpretation Comments ARTERIAL BLOOD GAS PH (test code = 7.200 7.35-7.45 L PHA) ARTERIAL BLOOD GAS PCO2 (test code 57.9 mmHg 35-45 H = PCO2A) ARTERIAL BLOOD GAS PO2 (test code 16.5 mmHg 80-100 LL = PO2A) BICARBONATE TOTAL HCO3 (test code 22.1 meq/L 22-26 N = HCO3) BASE EXCESS (test code = YUSEF) -6.7 -2.0-+2.0 L ABG O2 SATURATION (test code = 16.4 % 95-100 L SATA) ABG OXIMETRY (test code = OXA) 16.4 % sat ABG TYPE (test code = TYPEA) Arterial FIO2 (test code = FIO2A) 21.0 % PaO2/[id number] 03:26:00 Test Item Value Reference Range Interpretation Comments PaO2/FiO2 (test code = [id number]) 78.50 mm/Hg AG HEPATITIS B [id number] 17:32:00 Test Item Value Reference Range Interpretation Comments AG HEPATITIS B SURFACE (test code NONREACTIVE NONREACTIVE = HBSAG) AB HEPATITIS C [id number] 17:32:00 Test Item Value Reference Range Interpretation Comments AB HEPATITIS C (test code = NONREACTIVE NONREACTIVE HCVAB) SIGNAL TO CUTOFF (test code = <0.02 <0.80 N CUTOFF) AB [id number] 17:32:00 Test Item Value Reference Range Interpretation Comments AB TREPONEMA (test code = TREPAB) NONREACTIVE NONREACTIVE AB HIV 1 17:32:00 Test Item Value Reference Range Interpretation Comments AB HIV 1 2 (test NONREACTIVE NONREACTIVE Done by [facility] [employer] code = [id number]) 4th Gen HIV Ag/Ab Combo Screen COVID 19 Asymptomatic IH [id number] 17:16:00 Test Item Value Reference Range Interpretation Comments COVID 19 NEGATIVE NEGATIVE This test has b een Asymptomatic IH AG authorize d only for the (test code = detection ofpro teins from COVNONPUIAG) SARS-CoV-2, not for any other viruses orpathogens. Ne gative results should be treated as presumptive andconfirmed wi th a molecular assay , if necessary for patientmanageme nt. Negative result s do not rule out COVID- 19 andshould not b e used as the sole basis for treatment orpat ient management deci sions, including infec tion controldecision s. Negative result s should be considered i n thecontext of a patient's recent exposure s, history and thepresence of clinical signs and symptoms consis tent withCOVID-19. T his test has not been FD A cleared or approved; th e test hasbeen authori jaycob by FDA under an Emerge ncy Use Authorization(E UA) for use by laborato ngozi certified under the CLIA thatmeet the re quirements to perform mode rate, high or waivedcomple xity tests. This gerber t is authorized for use at thePoint of Car e (POC), i.e., in patien t care settingsoperati ng under a CLIA Certificat e of Waiver, Certifi raya ofCompliance, o r Certificate of Accreditation. This test is only authori jaycob for the duration of thedeclaration that circumstances e xist justifying theauthorizatio n of emergency use o f in vitro diagnostic test sfor detection and/o r diagnosis of CO VID-19 under [id number] 4(b)(1) of the Act, 21 U.S .C. 360bbb-3(b)(1), unless theauthorizatio n is terminated or r evoked sooner. CBC W/AUTO [id number] 15:14:00 Test Item Value Reference Range Interpretation Comments WHITE BLOOD CELL (test code = WBC) 10.0 K/mm3 6.5-12.3 N RED BLOOD CELL (test code = RBC) 3.14 M/mm3 3.51-4.69 L HEMOGLOBIN (test code = HGB) 8.9 g/dL 10.1-13.8 L HEMATOCRIT (test code = HCT) 26.8 % 32.5-41.8 L MEAN CELL VOLUME (test code = MCV) 85.4 fL 84.6-96.6 N MEAN CELL HGB (test code = MCH) 28.3 pg 27.3-33.9 N MEAN CELL HGB CONCETRATION (test 33.2 gm/dL 32.0-34.2 N code = MCHC) RED CELL DISTRIBUTION WIDTH (test 13.0 % 12.2-16.3 N code = RDW) PLATELET COUNT (test code = PLT) 383 K/mm3 134-363 H MEAN PLATELET VOLUME (test code = 9.9 fL 9.2-12.7 N MPV) NEUTROPHIL % (test code = NT%) 74.4 % 57.9-77.3 N LYMPHOCYTE % (test code = LY%) 18.4 % 14.5-29.7 N MONOCYTE % (test code = MO%) 6.1 % 3.6-10.2 N EOSINOPHIL % (test code = EO%) 0.3 % 0.0-3.0 N BASOPHIL % (test code = BA%) 0.3 % 0.1-0.9 N NEUTROPHIL # (test code = NT#) 7.4 K/mm3 LYMPHOCYTE # (test code = LY#) 1.8 K/mm3 MONOCYTE # (test code = MO#) 0.6 K/mm3 EOSINOPHIL # (test code = EO#) 0.03 K/mm3 BASOPHIL # (test code = BA#) 0.0 K/mm3 RBC MORPHOLOGY REQUIRED (test code NORMAL NORMAL = RBCM) PLATELET MORPHOLOGY REQUIRED (test NORMAL NORMAL code = PLTMR) URINALYSIS [id number] 20:22:00 Test Item Value Reference Range Interpretation Comments UA COLOR (test code = COLU) YELLOW YELLOW UA APPEARANCE (test code = Slightly-Cloudy CLEAR APPU) UA GLUCOSE DIPSTICK (test NEGATIVE NEG code = DGLUU) UA BILIRUBIN DIPSTICK (test NEGATIVE NEG code = BILU) UA KETONE DIPSTICK (test code NEGATIVE NEG = KETU) UA SPECIFIC GRAVITY (test 1.028 1.001-1.035 N code = SGU) UA BLOOD DIPSTICK (test code NEG NEG = TIGIST) UA PH DIPSTICK (test code = 6.0 5-9 CHOCO) UA PROTEIN DIPSTICK (test NEGATIVE NEG code = PROU) UA UROBILINIOGEN DIPSTICK 2.0 mg/dL NEG (test code = URO) UA NITRITE DIPSTICK (test NEG NEG code = ANDREW) UA LEUKOCYTE ESTERASE NEG NEG DIPSTICK (test code = LEUU) UA WBC (test code = WBCU) 0-2 #/hpf NONE SEEN UA RBC (test code = RBCU) 0-2 #/hpf NONE SEEN UA EPITHELIAL CELLS (test FEW #/HPF RARE-FEW code = EPIU) UA BACTERIA (test code = NEGATIVE /HPF RARE-FEW BACU) UA MUCUS (test code = MUCU) 1+ NONE SEEN RUPTURE OF [id number] 18:38:00 Test Item Value Reference Range Interpretation Comments RUPTURE OF MEMBRANES (test code NON-RUPTURED = ROM) - US FET BIO PH MD W/O [id number] 00:00:00 [facility] : 1995 Sex: F Patient Name: NABILA MEJIAS Unit No: [id number] EXAMS: CPT CODE: [id number] US FET BIO PH MD W/O NST 32929 PROCEDURE INFORMATION: Exam: US Biophysical Profile Without Non-Stress Test Exam date and time: 08/18/2021 7:27 PM Age: 26 years old Clinical indication: Other: Leaking of fluid; ; Additional info: Leakage of fluid 35 weeks gestation TECHNIQUE: Imaging protocol: US biophysical profile without non-stress testing. COMPARISON: No relevant prior studies available. FINDINGS: Gestation: A single live intrauterine is identified currently in breech position with heart tones of122 bpm. Anterior grade 2 placenta is seen. No placenta previa identified. The cervix measures 4.7 cm length. Amniotic fluid index measures 24.5 cm. BIOPHYSICAL PROFILE: Breathin/2 Gross body movements: 2/2 tone: 2/2 Qualitative amniotic fluid: 2/2 Biophysical Profile Score: 8/8 IMPRESSION: 1. Biophysical profile score of 8/8. 2. Polyhydramnios. at 2006 Reported and signed by: Niels Arcos MD CC: Diony Hicks MD; Caryl Rand Jhajj DO; Kris Wild III, MD Technologist: Reza Mccauley RDMS Probe: Trnscrbd D/ (2005) GCD.CPS Orig Print D/T: S: 08/19/2021 (1525) [facility] NAME: NABILA MEJIAS Radiology Department PHYS: Kris Gilbert III, MD [address] : 1995 AGE: 26 SEX: F [place] [address] LOC: Luis.[place] PHONE #: [phone] EXAM DATE: 08/18/2021 STATUS: DEP ER FAX #: [phone] RAD NO: Page 1 Signed Report Patient Name: RANDELLNABILA Unit No: [id number] EXAMS: CPT CODE: [id number] [facility] BIO PH MD W/O NST 68687 (Continued) [facility] NAME: NABILA MEJIAS Radiology Department PHYS: Kris Gilbert III, MD [address] : 1995 AGE: 26 SEX: F [place] [address] LOC: Luis.[place] PHONE #: [phone] EXAM DATE: 08/18/2021 STATUS: DEP ER FAX #: [phone] RAD NO: Page 2 Signed Report
[2022-07-05] MEDS ORDERED: LIDOCAINE VISCOUS 2% SOLN 15 ML UDC ONE (15:49)
[2022-07-05] MEDS ORDERED: FAMOTIDINE 20 MG/2 ML VIAL IV ONE (15:49)
[2022-07-05] MEDS ORDERED: MAGNES/ALUMIN/SIMET 30ML UCUP ONE (15:49)
[2022-07-05 16:04] LABS: Urine Blood Negative (Negative); Urine Glucose Negative (Negative); Urine Protein Negative (Negative); Urine Specific Gravity 1.015 (1.005-1.030); Urine pH 5.5 (5.0-7.0)
[2022-07-05 16:10] LABS: Absolute Lymphocytes (CBC) 1.8 K/uL (0.7-4.9); Hematocrit 38.7 % (36.0-45.0); Lymphocytes % 27.5 % (15.3-44.8); MCV 84.9 fL (80-100); MPV 7.5 fL (7.6-11.3); RBC Red Blood Cell Count 4.56 M/uL (3.86-4.86)
[2022-07-05 16:21] LABS: Albumin 4.3 g/dL (3.4-5.0); Bilirubin Total 0.4 mg/dL (0.2-1.0); Potassium 3.5 mmol/L (3.5-5.1)
--- NOTE | 2022-07-05 16:54 | RAD REPORT ---
EXAM DESCRIPTION: CT - Abdomen Pelvis W Contrast - 07/05/2022 4:42 pm CLINICAL HISTORY: Abdominal pain COMPARISON: none. TECHNIQUE: Computed axial tomography of the abdomen pelvis was obtained. 100 cc Isovue-300 was admin istered intravenously. Oral contrast was not requested which limits evaluation of bowel and appendix All CT scans are performed using dose optimization technique as appropriate and may include automated exposure control or mA/KV adjustment according to patient size. FINDINGS: The liver, spleen, pancreas, adrenal and kidneys appear unremarkable. There is no evidence of diverticulitis. Small umbilical hernia. No adnexal mass. Trace amount of free fluid. Fluid is present throughout nondilated small bowel. The appendix is borderline dilated. No stranding within the adjacent fat IMPRESSION: Fluid throughout nondilated small bowel may indicate enteritis Borderline dilatation of the appendix with no stranding within the adjacent fat. My suspicion for vanessa endicitis is relatively low. If this is a strong clinical concern then a CT scan with oral contrast a nd opacification of the terminal ileum/cecum may be helpful
[2022-07-05 17:02] LABS: Urine Specific Gravity/Preg 1.015 (1.005-1.030)
--- NOTE | 2022-07-05 17:26 | ER ---
Nurse's Notes [facility] Name: Kishan Parr Age: 27 yrs Sex: Female : 1995 Arrival Date: 07/05/2022 Time: 15:19 Bed 12 Private MD: Diagnosis: Abdominal pain, unspecified;Vomiting, unspecified Presentation: 07/05 15:38 Chief complaint: Patient states: mid abd pain above belly button X 4 days, feels like a iw knot or tightening , pain is intermittent, +nausea. Coronavirus screen: At this time, the client does not indicate any symptoms associated with coronavirus-19. Ebola Screen: Patient negative for fever greater than or equal to 101.5 degrees Fahrenheit, and additional compatible Ebola Virus Disease symptoms Patient denies exposure to infectious person. Patient denies travel to an Ebola-affected area in the 21 days before illness onset. No symptoms or risks identified at this time. Initial Sepsis Screen: Does the patient meet any 2 criteria? No. Patient's initial sepsis screen is negative. Does the patient have a suspected source of infection? No. Patient's initial sepsis screen is negative. Risk Assessment: Do you want to hurt yourself or someone else? Patient reports no desire to harm self or others. Onset of symptoms was July 01, 2022. 15:38 Method Of Arrival: Ambulatory iw 15:38 Acuity: [place] 3 iw Historical: - Allergies: 15:39 No Known Allergies; iw - Home Meds: 15:39 None [Active]; iw - PMHx: 15:39 cardiomyopathy; iw - PSHx: 15:39 section; iw - Immunization history:: Client reports having NOT received the Covid vaccine. - Social history:: Smoking status: Patient reports the use of cigarette tobacco products. - Family history:: not pertinent. - Hospitalizations: : No recent hospitalization is reported. Screenin:06 Abuse screen: Denies threats or abuse. Denies injuries from another. Nutritional iw screening: No deficits noted. Tuberculosis screening: No symptoms or risk factors identified. Fall Risk IV access (20 points). Assessment: 16:05 General: Appears in no apparent distress. Behavior is calm, cooperative. Pain: iw Complains of pain in abdomen. Neuro: Level of Consciousness is awake, alert, obeys commands, Oriented to person, place, time, situation, Moves all extremities. Full function. GI: Abdomen is flat, non-distended, Bowel sounds present X 4 quads. Abd is soft X 4 quads Reports lower abdominal pain, upper abdominal pain, nausea. Derm: Skin is intact, is healthy with good turgor. Musculoskeletal: Range of motion: intact in all extremities. 17:30 Reassessment: Patient appears in no apparent distress at this time. Patient and/or hb family updated on plan of care and expected duration. Pain level reassessed. Patient is alert, oriented x 3, equal unlabored respirations, skin warm/dry/pink. Vital Signs: 15:38 BP 105 / 72; Pulse 84; Resp 16; Pulse Ox 100% on R/A; Weight 58.97 kg; Height 5 ft. 1 iw in. (154.94 cm); 17:30 BP 112 / 70; Pulse 80; Resp 16; Pulse Ox 99% on R/A; hb 15:38 Body Mass Index 24.56 (58.97 kg, 154.94 cm) iw ED Course: 15:19 Patient arrived in ED. mr 15:34 Junito Pandey MD is Attending Physician. rn 15:34 Molina Pascal is PHCP. jl9 15:38 Sinai Burch, ROSALINDA is Primary Nurse. iw 15:39 Triage completed. iw 15:40 Arm band placed on. iw 15:50 Initial lab(s) drawn, by me, sent to lab. Urine collected: clean catch specimen. iw Inserted saline lock: 22 gauge in left antecubital area, using aseptic technique. Blood collected. 16:44 CT Abd/Pelvis - IV Contrast Only In Process Unspecified. EDMS 17:30 Patient has correct armband on for positive identification. hb 17:45 No provider procedures requiring assistance completed. IV discontinued, intact, hb bleeding controlled, No redness/swelling at site. Administered Medications: 16:00 Drug: GI Cocktail without - (Maalox Suspension 30 ml, Lidocaine Liquid 2 % 15 iw ml) Route: PO; 17:00 Follow up: Response: No adverse reaction hb 16:04 Drug: Pepcid (famotidine) 20 mg Route: IVP; Site: left antecubital; iw 16:50 Follow up: Response: No adverse reaction hb 17:49 Drug: Zofran (Ondansetron) 4 mg Route: IVP; Site: left antecubital; 17:50 Follow up: Response: Medication administered at discharge. Medication: 17:30 VIS not applicable for this client. Outcome: 17:25 Discharge ordered by . rn 17:45 Discharged to home ambulatory. 17:45 Condition: stable 17:45 Discharge instructions given to patient, Instructed on discharge instructions, follow up and referral plans. medication usage, Demonstrated understanding of instructions, follow-up care, medications, Prescriptions given X 1. 17:51 Patient left the ED. Signatures: Dispatcher [employer] [facility] Shanna Schultz Irene, RN Junito Hinojosa MD MD rn Baxter, Heather, RN RN hb Linares, John jl9
--- NOTE | 2022-07-05 17:26 | EDPHYS ---
Physician Documentation [facility] Name: Kishan Parr Age: 27 yrs Sex: Female : 1995 Arrival Date: 07/05/2022 Time: 15:19 Bed 12 Private MD: ED Physician Junito Pandey HPI: 07/05 16:24 This 27 yrs old Female presents to ER via Ambulatory with complaints of Abdominal Pain, rn Nausea/Vomiting. 16:24 The patient presents to the emergency department with nausea, vomiting, abdominal pain, rn of the epigastric area and left upper quadrant. Onset: The symptoms/episode began/occurred 4 day(s) ago. Possible causes: unknown. The symptoms are aggravated by nothing. The symptoms are alleviated by nothing. Associated signs and symptoms: Pertinent positives: abdominal pain, nausea, vomiting, Pertinent negatives: fever, GI bleeding. Severity of symptoms: At their worst the symptoms were mild in the emergency department the symptoms are unchanged. The patient has not experienced similar symptoms in the past. The patient has not recently seen a physician. Historical: - Allergies: 15:39 No Known Allergies; iw - Home Meds: 15:39 None [Active]; iw - PMHx: 15:39 cardiomyopathy; iw - PSHx: 15:39 section; iw - Immunization history:: Client reports having NOT received the Covid vaccine. - Social history:: Smoking status: Patient reports the use of cigarette tobacco products. - Family history:: not pertinent. - Hospitalizations: : No recent hospitalization is reported. ROS: 16:24 Constitutional: Negative for fever, chills, and weight loss, Eyes: Negative for injury, rn pain, redness, and discharge, Neck: Negative for injury, pain, and swelling, Cardiovascular: Negative for chest pain, palpitations, and edema, Respiratory: Negative for shortness of breath, cough, wheezing, and pleuritic chest pain, Abdomen/GI: +abd pain and nausea Back: Negative for injury and pain, MS/Extremity: Negative for injury and deformity, Skin: Negative for injury, rash, and discoloration, Neuro: Negative for headache, weakness, numbness, tingling, and seizure. Exam: 16:24 Constitutional: This is a well developed, well nourished patient who is awake, alert, rn and in no acute distress. Head/Face: Normocephalic, atraumatic. Cardiovascular: Regular rate and rhythm. No pulse deficits. Respiratory: No increased work of breathing, no retractions or nasal flaring. Abdomen/GI: soft, mild epigastric and LUQ tenderness Skin: Warm, dry MS/ Extremity: Pulses equal, no cyanosis. Neuro: Awake and alert, GCS 15 Vital Signs: 15:38 BP 105 / 72; Pulse 84; Resp 16; Pulse Ox 100% on R/A; Weight 58.97 kg; Height 5 ft. 1 iw in. (154.94 cm); 17:30 BP 112 / 70; Pulse 80; Resp 16; Pulse Ox 99% on R/A; hb 15:38 Body Mass Index 24.56 (58.97 kg, 154.94 cm) iw MDM: 15:34 Patient medically screened. rn 17:22 Differential diagnosis: Nonspecific abd pain, gastritis, cholecystitis, pancreatitis, rn appendicitis, diverticulitis, viral gastroenteritis, gastroenteritis. Data reviewed: vital signs, nurses notes, lab test result(s), radiologic studies, CT scan, and as a result, I will discharge patient. Counseling: I had a detailed discussion with the patient and/or guardian regarding: the historical points, exam findings, and any diagnostic results supporting the discharge/admit diagnosis, lab results, radiology results, the need for outpatient follow up, to return to the emergency department if symptoms worsen or persist or if there are any questions or concerns that arise at home. Response to treatment: the patient's symptoms have mildly improved after treatment, and as a result, I will discharge patient. 17:23 ED course: CT shows enteritis and commented on borderline appendix but Dr. Jimenez rn states low probability of appendicitis and no stranding. Normal WBC. No fever. Offered patient repeat CT with oral contrast after going through results with her, she declines, states wants to go home and will return if gets worse. Understands risks. . 07/05 15:46 Order name: CBC with Diff; Complete Time: 16:24 rn 07/05 15:46 Order name: CMP; Complete Time: 16:24 rn 07/05 15:46 Order name: Lipase; Complete Time: 16:24 rn 07/05 15:46 Order name: CT Abd/Pelvis - IV Contrast Only; Complete Time: 17:04 rn 07/05 16:04 Order name: Urine --Ancillary (enter results); Complete Time: 17:04 3 07/05 16:04 Order name: Urine Dipstick-Ancillary; Complete Time: 16:24 EDMS 07/05 15:46 Order name: IV Saline Lock; Complete Time: 16:00 rn 07/05 15:46 Order name: Labs collected and sent; Complete Time: 16:00 rn 07/05 15:46 Order name: Urine Dipstick-Ancillary (obtain specimen); Complete Time: 16:00 rn 07/05 15:46 Order name: Urine Test (obtain specimen); Complete Time: 16:05 rn Administered Medications: 16:00 Drug: GI Cocktail without - (Maalox Suspension 30 ml, Lidocaine Liquid 2 % 15 iw ml) Route: PO; 17:00 Follow up: Response: No adverse reaction hb 16:04 Drug: Pepcid (famotidine) 20 mg Route: IVP; Site: left antecubital; iw 16:50 Follow up: Response: No adverse reaction hb 17:49 Drug: Zofran (Ondansetron) 4 mg Route: IVP; Site: left antecubital; hb 17:50 Follow up: Response: Medication administered at discharge. hb Disposition Summary: 07/05/22 17:25 Discharge Ordered Location: Home rn Problem: new rn Symptoms: have improved rn Condition: Stable rn Diagnosis - Abdominal pain, unspecified rn - Vomiting, unspecified rn Followup: rn - With: Private Physician - When: As needed - Reason: Recheck today's complaints, Re-evaluation by your physician Discharge Instructions: - Discharge Summary Sheet rn - Abdominal Pain, Adult rn - Nausea and Vomiting, Adult rn Forms: - Medication Reconciliation Form rn - Thank You Letter rn - Antibiotic unit manager rn - Prescription Opioid Use rn Prescriptions: - ondansetron 4 mg Oral tablet,disintegrating - take 1 tablet by ORAL route every 6-8 hours As needed; 15 tablet; Refills: 0, rn Product Selection Permitted Signatures: Dispatcher [employer] Sinai Redman, RN RN iw Junito Pandey MD MD rn Baxter, Heather, RN RN hb
[2022-07-05] MEDS ORDERED: ONDANSETRON 4 MG/2 ML VIAL ONE (17:43)
[2022-07-07 11:11] VITALS: BP 112/70; O2SAT 99
== END 2022-07-05 17:51 | disposition home or self-care (01) ==
LOC: ER 15:16
DX: R10.13 Epigastric pain (principal); R11.2 Nausea with vomiting, unspecified; F17.210 Nicotine dependence, cigarettes, uncomplicated
CPT/HCPCS: 36415; 74177; 80053; 81003; 81025; 83690; 85025; 96374; 96375; 99284; J2405; Q9967

== ENCOUNTER 2022-07-07 11:57 | Emergency (ER) | payer OTHER, SELFPAY ==
--- OUTSIDE RECORDS SUMMARY | 2022-07-07 12:01 | XMS REPORT | Continuity of Care Document ---
:1995 Author Organization [facility] t Address [address] [place] [address] Care Team Providers Name Role Phone PCP, [...] Type Policy Number Effective Date Expiration Date [facility] [id number] 2021 CHOICE MEDICAID 00:00:00 Problems Condition Condition Condition Status Onset Resolution Last Treating Co mments Source Name Details Category Date Date Treatment Clinician Date Urinary Urinary Disease Active Univers tract tract 6-08 ity of infection [place] mother 00 [facility] during during Branch , , antepartum antepartum Disease Active Univers uterine uterine 604 ity of [place] 00 [facility] third third Branch trimester, trimester, antepartum antepartum Acute Acute Disease Active Univers cystitis cystitis 604 ity of with with 00:00: [place] hematuria hematuria 00 [facility] Branch Acute left Acute left Disease Active U nivers flank pain flank pain 6-04 it y of 00:00: [place] 00 Medical Branch 29 weeks 29 weeks Disease Active Unive rs gestation gestation 604 ity of of of 00:00: [place] 00 [facility] Allergies, Adverse Reactions, Alerts Allergy Allergy Status Severity Reaction(s) Onset Inactive Treating Comm ents Source Name Type Date Date Clinician No Known DA Active U 2020-10 [facility]11 [facility] 00 [facility] No Known DA Active U [facility] All[facility]ie 8-09 [facility] 00 [facility] No Known DA Active U [facility] Allergie 8-09 [facility] 00:[facility]: [facility] 00 [facility] NO KNOWN Drug Active Univers ALLERGIE Class ity of S [facility] Social History Social Habit Start Date Stop Date Quantity Comments Source Exposure to 2022-04-16 2022-04-26 Not sure [facility] SARS-CoV-2 (event) 00:00:00 21:58:00 Medica l Branch Sex Assigned At [birth year] [facility] y of [place] 00:00:00 00:00:00 Medical Branch Smoking Status Start Date Stop Date Source Tobacco smoking consumption Univ [facility] Medical unknown Branch Medications Ordered Filled Start Stop Current Ordering Indication Dosage Frequency Signature Comments Components Source Medication Medication Date Date Medication? Clinician (SIG) Name Name No known No No known Unive rs medications 7-20 medication it y of 19:30: s [place] [address] Medical Branch No known No Univers medications 9-17 ity of 20:46: [place] 14 Medical Branch No known No Univers medications 9-17 ity of 20:46: [address] Vital Signs Vital Name Observation Time Observation Value Comments Source Systolic blood 2022-04-27 01:00:00 104 mm[Hg] Univer sity of pressure [facility] Diastolic blood 2022-04-27 01:00:00 74 mm[Hg] Unive rsity of pressure [facility] Heart rate 2022-04-27 01:00:00 81 /min Universi ty of [facility] Respiratory rate 2022-04-27 01:00:00 18 /min Univ ersity of [facility] Oxygen saturation in 2022-04-27 01:00:00 100 /min University of Arterial blood by [facility] francis Pulse oximetry Branch Body temperature 2022-04-26 23:32:00 37.44 Marisol Univ ersity of [facility] Body height 2022-04-26 23:32:00 154.9 cm Universi ty of [facility] Body weight 2022-04-26 23:32:00 58.968 kg Universi ty of [facility] BMI 2022-04-26 23:32:00 24.56 kg/m2 Universi ty of [facility] Heart rate 2021-06-25 01:15:00 75 /min Universi ty of [facility] Oxygen saturation in 2021-06-25 01:10:00 100 /min University of Arterial blood by [facility] Pulse oximetry Branch Systolic blood 2021-06-24 23:45:00 109 mm[Hg] Univer sity of pressure [facility] Diastolic blood 2021-06-24 23:45:00 62 mm[Hg] Unive rsity of pressure [facility] Body temperature 2021-06-24 23:45:00 37.39 Marisol Univ ersity of [facility] Respiratory rate 2021-06-24 23:20:00 16 /min Univ ersity of [facility] Body height 2021-06-24 23:20:00 154.9 cm [facility] [place] [facility] [place] Body weight 2021-06-24 23:20:00 66.679 kg [facility] [place] [facility] [place] BMI 2021-06-24 23:20:00 27.78 kg/m2 Universi ty of [facility] Procedures Procedure Date / Time Performed Performing Clinician Sourc e URINALYSIS 2022-04-27 01:21:00 Murtaza Layne [facility] TROPONIN I 2022-04-27 00:23:00 Murtaza Layne [facility] BASIC METABOLIC PANEL 2022-04-27 00:23:00 Murtaza Layne [facility] (NA, K, CL, CO2, Medical Branch GLUCOSE, BUN, CREATININE, CA) CBC WITH DIFF 2022-04-27 00:23:00 Murtaza Layne [facility] D-DIMER 2022-04-27 00:23:00 Murtaza Layne [facility] XR CHEST 1 VW 2022-04-27 00:18:34 Murtaza Layne [facility] CONSENT/REFUSAL FOR 2022-04-26 23:26:40 [facility] Branch TREATMENT [id number] 2021-09-03 00:00:00 PIETER [facility] COVID-19 (ID NOW RAPID 2021-06-25 00:42:00 Lauryn Page [facility] TESTING) Medical Branch NOTICE OF PRIVACY 2021-06-24 23:13:22 Doctor Unassigned, No [facility] PRACTICES Name Medical Branch CONSENT/REFUSAL FOR 2021-06-24 23:11:45 [facility], [facility] Name [facility] Branch TREATMENT Encounters Start End Encounter Admission Attending Care Care Encounter Source Date/Time Date/Time Type Type Clinicians Facility Department ID 2021-09-07 Inpatient HAMLET Tse [facility] [id number] [facility] 10:00:[address] [place] [address]'s [facility] 2022-04-26 2022-04-26 Emergency X ROVERTO [facility] ERT [id number] Univers 18:42:00 22:00:00 MURTAZA olivas [facility] 2022-04-26 2022-04-26 Emergency Roverto [facility] [id number] Univers 18:42:00 22:00:00 Murtaza SINGH [id number] i [facility] [id number] [facility] [id number] [facility] 084 Branch 2021-09-03 2021-09-05 Emergency EM LIBORIO Hicks OBPP [id number] [facility] 01:41:00 19:53:00 Ziad [facility] [place] 2021-08-31 2021-08-31 Inpatient LIBORIO Leon RADI [id number] [facility] 11:15:00 11:15:00 Ziad 97 [facility] [place] 2021-08-18 2021-08-18 Emergency EM LIBORIO Hicks [place] [id number] [facility] 17:35:00 21:43:00 Ziad 87 [facility] [place] 2021-06-24 2021-06-24 Emergency Lauryn Page [facility] [id number] [facility] 18:26:00 20:53:00 [place] [id number] i [facility] [id number] [facility] [id number] [place] [id number] [place] 2021-06-24 2021-06-24 Outpatient X LAURYN PAGE [facility] JAIME [id number] [facility] 18:26:00 18:26:00 ity of [facility] 2021-04-18 2021-04-18 Outpatient HAMLET Hicks [facility] RADI [id number] [facility] 11:03:00 11:03:00 Ziad 79 [facility] Results Test Description Test Time Test Comments Results Result Comments Source SURGICAL 2021-09-12 17:25:00 Test Item Value Reference Range Interpretation Commjose hatfield SURGICAL RUN (test DATE: 09/12/21 [facility] PAGE 1 RUN TIME: 1725 Specimen Inquiry RUN USER: INTERFACE code = EMMANUEL SR) NT: NABILA MEJIAS ACCT #: [id number] LOC: W[place]ER U #: [id number] AGE/SX: 26/ ROOM: 2005 RE09/03/21REG DR: Diony Hicks MD : 93 BED: A DIS: 09/05/21 STATUS: DIS IN TLOC: SPEC #: [id number] RECD: 08/09 STATUS: [facility] RE #: [id number] JORGE L: 09/02/21- SUBM DR: Diony Hicks MD ENTERED: SP TYPE: SURGICAL OTHR DR: DOES_NOT KNOW ORDERED: ANATOMIC SPEC, SPEC TRACK, [id number] CODES: [id number] - PLACENTA, NOS COPIES TO: DOES_NOT KNOW Diony Hicks MD [address] [place] [address] PROCEDURES: [id number] (09/12/21-172) TISSUES: [facility], NOS - PP [...] at edge LC Technical component performed at [place] [address] [address] , [place] [address] Unless gross only, the diagnosis is based upon microscopic examination. CONTINUED ON NE XT PAGE RUN DATE: 09/12/21 [facility] RUN TIME: 1725 Specimen Inquiry RUN USER: INTERFACE SPEC #: [id number] PATIENT: NABILA MEJIAS #[id number] (Continued) ------ GROSS DESCRIPTION (Co ntinued) Immunohistochemistry: This test was developed and its performance characteristicsd etermined by this laboratory. It has not been approved nor does it need approval by Heather FDA. Appropriate positive and negative controls are reviewed and judged to beacceptable. This laborator y is certified under the Clinical Laboratory ImprovementAmendments (CLIA-88) as qualified to pe [facility] high complexity clinical laboratory testing. CLINICAL INFORMATION PRE-C Signed [address] 09/12/21 1725 END OF REPORT HGB [id number] 04:48:00 Test Item Value Reference Range Interpretation Comments HEMOGLOBIN (test code = HGB) 7.7 g/dL 10.1-13.8 L HEMATOCRIT (test code = HCT) 23.8 % 32.5-41.8 L CAPILLARY BLOOD [id number] 03:26:00 Test Item Value Reference Range Interpretation [...] 21.0 % code = FIO2C) ARTERIAL BLOOD [id number] 03:26:00 Test Item Value Reference Range Interpretation [...] FIO2 (test code = FIO2A) 21.0 % PaO2/[id number] 03:26:00 Test Item Value Reference Range Interpretation Comments PaO2/FiO2 (test code = DHP8BKO1) 78.50 mm/Hg AG HEPATITIS B [id number] 17:32:00 Test Item Value Reference Range Interpretation Comments AG HEPATITIS B SURFACE (test code NONREACTIVE NONREACTIVE = HBSAG) AB HEPATITIS C [id number] 17:32:00 Test Item Value Reference Range Interpretation Comments AB HEPATITIS C (test code = NONREACTIVE NONREACTIVE HCVAB) SIGNAL TO CUTOFF (test code = <0.02 <0.80 N CUTOFF) AB [id number] 17:32:00 Test Item Value Reference Range Interpretation Comments AB TREPONEMA (test code = TREPAB) NONREACTIVE NONREACTIVE AB HIV 1 17:32:00 Test Item Value Reference Range Interpretation Comments AB HIV 1 2 (test NONREACTIVE NONREACTIVE Done by [facility] code = [id number]) 4th Gen HIV Ag/Ab Combo Screen COVID 19 Asymptomatic IH [id number] 17:16:00 Test Item Value Reference Range Interpretation [...] and/o r diagnosis of CO VID-19 under Ftqxxzd64 4(b)(1) of the Act, 21 U.S .C. 360bbb-3(b)(1), unless theauthorizatio n is terminated or r evoked sooner. CBC W/AUTO [id number] 15:14:00 Test Item Value Reference Range Interpretation [...] (test NORMAL NORMAL code = PLTMR) URINALYSIS [id number] 20:22:00 Test Item Value Reference Range Interpretation [...] = MUCU) 1+ NONE SEEN RUPTURE OF [id number] 18:38:00 Test Item Value Reference Range Interpretation Comments RUPTURE OF MEMBRANES (test code NON-RUPTURED = ROM) - US FET BIO PH DE W/O [id number] 00:00:00 [facility] : 1995 Sex: F Patient Name: NABILA MEJIAS Unit No: [id number] EXAMS: CPT CODE: [id number] US FET BIO PH DE W/O NST 84146 PROCEDURE INFORMATION: Exam: US Biophysical Profile Without [...] Orig Print D/T: S: 08/19/2021 (1525) [facility] NAME: NABILA MEJIAS Radiology Department PHYS: Kris Gilbert III, MD [address] : 1995 AGE: 26 SEX: F [place] [address] LOC: Luis.[place] PHONE #: [phone] EXAM DATE: 08/18/2021 STATUS: DEP ER FAX #: [phone] RAD NO: Page 1 Signed Report Patient Name: RANDELLNABILA Unit No: [id number] EXAMS: CPT CODE: [id number] [facility] BIO PH DE W/O NST 60457 (Continued) [facility] NAME: NABILA MEJIAS Radiology Department PHYS: Kris Gilbert III, MD [address] : 1995 AGE: 26 SEX: F [place] [address] LOC: Luis.[place] PHONE #: [phone] EXAM DATE: 08/18/2021 STATUS: DEP ER FAX #: [phone] RAD NO: Page 2 Signed Report
[2022-07-07 12:27] LABS: Urine Blood Negative (Negative); Urine Glucose Negative (Negative); Urine Protein Negative (Negative); Urine Specific Gravity 1.025 (1.005-1.030)
[2022-07-07 12:40] LABS: Urine Specific Gravity/Preg 1.025 (1.005-1.030)
[2022-07-07 13:06] LABS: Absolute Lymphocytes (CBC) 1.8 K/uL (0.7-4.9); Hematocrit 34.5 % (36.0-45.0); Lymphocytes % 30.4 % (15.3-44.8); MCV 84.5 fL (80-100); MPV 7.7 fL (7.6-11.3); RBC Red Blood Cell Count 4.09 M/uL (3.86-4.86)
[2022-07-07] MEDS ORDERED: DICYCLOMINE HCL 10 MG CAP ONE (13:17)
[2022-07-07] MEDS ORDERED: ONDANSETRON 4 MG/2 ML VIAL ONE (13:17)
[2022-07-07 13:20] LABS: Bilirubin Total 0.6 mg/dL (0.2-1.0); Protein, Total 7.4 g/dL (6.4-8.2)
--- NOTE | 2022-07-07 15:24 | RAD REPORT ---
EXAM DESCRIPTION: CTAbdomen Pelvis W Contrast - 07/07/2022 3:09 pm CLINICAL HISTORY: Vomiting and diarrhea COMPARISON: Abdomen Pelvis W Contrast dated 07/05/2022 TECHNIQUE: CT of the abdomen and pelvis was performed. All CT scans are performed using dose optimization technique as appropriate and may include automated exposure control or mA/KV adjustment according to patient size. FINDINGS: Lower chest: No acute abnormality. Liver: No acute abnormality or suspicious lesions. Biliary: No biliary ductal dilatation. Stomach: No significant focal abnormality. Duodenum: No significant focal abnormality. Pancreas: No significant abnormality. Spleen: No significant abnormality. Adrenal: No suspicious lesions. Kidney/ureter: No hydronephrosis. No renal calculi. Retroperitoneum: No retroperitoneal adenopathy. Vascular: No aneurysm. Bowel: Scattered air-fluid levels in the colon.. Peritoneum: No ascites or free air. Bladder: Grossly unremarkable. Reproductive: No adnexal masses. Bones: No acute fracture. Other: n/a IMPRESSION: No acute intra-abdominal or pelvic finding. Normal appendix. Air-fluid levels in the col on likely representing diarrheal disease. No bowel obstruction.
--- NOTE | 2022-07-07 15:50 | EDPHYS ---
Physician Documentation [facility] Name: Kishan Parr Age: 27 yrs Sex: Female : 1995 Arrival Date: 07/07/2022 Time: 12:00 Bed 4 Private MD: ED Physician Peewee Clarke HPI: 07/07 15:47 This 27 yrs old Female presents to ER via Ambulatory with complaints of jl9 abdominal cramping and diarrhea. Seen here for similar complaint recently. . 15:47 The patient presents with abdominal pain that is diffuse. Onset: The symptoms/episode jl9 began/occurred 1 week(s) ago. The symptoms do not radiate. Associated signs and symptoms: Pertinent positives: diarrhea. The symptoms are described as crampy. Modifying factors: The symptoms are alleviated by nothing, the symptoms are aggravated by nothing. Severity of pain: in the emergency department the pain is a 3 / 10. 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 Last tetanus immunization: < 5 years ago. - Social history:: Smoking status: Patient reports the use of cigarette tobacco products, smokes one-half pack cigarettes per day. ROS: 15:48 Constitutional: Negative for fever, chills, and weight loss, Eyes: Negative for injury, jl9 pain, redness, and discharge, ENT: Negative for injury, pain, and discharge, Neck: Negative for injury, pain, and swelling, Cardiovascular: Negative for chest pain, palpitations, and edema, Respiratory: Negative for shortness of breath, cough, wheezing, and pleuritic chest pain. 15:48 Back: Negative for injury and pain, : Negative for injury, bleeding, discharge, and swelling, MS/Extremity: Negative for injury and deformity, Skin: Negative for injury, rash, and discoloration, Neuro: Negative for headache, weakness, numbness, tingling, and seizure, Psych: Negative for depression, anxiety, suicide ideation, homicidal ideation, and hallucinations, Allergy/Immunology: Negative for hives, rash, and allergies, Endocrine: Negative for neck swelling, polydipsia, polyuria, polyphagia, and marked weight changes, Hematologic/Lymphatic: Negative for swollen nodes, abnormal bleeding, and unusual bruising. 15:48 Abdomen/GI: Positive for abdominal pain, diarrhea. Exam: 15:49 Constitutional: This is a well developed, well nourished patient who is awake, alert, jl9 and in no acute distress. Head/Face: Normocephalic, atraumatic. Eyes: Pupils equal round and reactive to light, extra-ocular motions intact. Lids and lashes normal. Conjunctiva and sclera are non-icteric and not injected. Cornea within normal limits. Periorbital areas with no swelling, redness, or edema. ENT: Mucous membranes moist. Neck: Trachea midline, no thyromegaly or masses palpated, and no cervical lymphadenopathy. Supple, full range of motion without nuchal rigidity, or vertebral point tenderness. No Meningismus. Chest/axilla: Normal chest wall appearance and motion. Nontender with no deformity. No lesions are appreciated. Cardiovascular: Regular rate and rhythm with a normal S1 and S2. No gallops, murmurs, or rubs. Normal PMI, no JVD. No pulse deficits. Respiratory: Lungs have equal breath sounds bilaterally, clear to auscultation and percussion. No rales, rhonchi or wheezes noted. No increased work of breathing, no retractions or nasal flaring. 15:49 Back: No spinal tenderness. No costovertebral tenderness. Full range of motion. Skin: Warm, dry with normal turgor. Normal color with no rashes, no lesions, and no evidence of cellulitis. MS/ Extremity: Pulses equal, no cyanosis. Neurovascular intact. Full, normal range of motion. Neuro: Awake and alert, GCS 15, oriented to person, place, time, and situation. Cranial nerves II-XII grossly intact. Motor strength 5/5 in all extremities. Sensory grossly intact. Cerebellar exam normal. Normal gait. Psych: Awake, alert, with orientation to person, place and time. Behavior, mood, and affect are within normal limits. 15:49 Abdomen/GI: Inspection: abdomen appears normal, Bowel sounds: normal, Palpation: mild abdominal tenderness, in all quadrants. Vital Signs: 12:17 BP 104 / 76; Pulse 88; Resp 20; Temp 98.7; Pulse Ox 100% ; Weight 58.97 kg; Height 5 kb3 ft. 1 in. (154.94 cm); Pain 9/10; 13:09 BP 102 / 80; Pulse 73; Resp 16; Pulse Ox 100% on R/A; Pain 0/10; mb9 13:52 BP 112 / 91; Pulse 71; Resp 16; Pulse Ox 100% on R/A; Pain 0/10; mb9 15:59 BP 113 / 80; Pulse 68; Resp 16; Pulse Ox 100% on R/A; Pain 0/10; mb9 12:17 Body Mass Index 24.56 (58.97 kg, 154.94 cm) kb3 MDM: 12:41 Patient medically screened. [facility] 15:49 Data reviewed: vital signs, nurses notes. Counseling: I had a detailed discussion with [facility] the patient and/or guardian regarding: the historical points, exam findings, and any diagnostic results supporting the discharge/admit diagnosis, lab results, radiology results, the need for outpatient follow up, to return to the emergency department if symptoms worsen or persist or if there are any questions or concerns that arise at home. Response to treatment: the patient's symptoms have markedly improved after treatment. 07/07 12:27 Order name: Urine Dipstick-Ancillary; Complete Time: 12:40 EDMS 07/07 12:38 Order name: Urine --Ancillary (enter results) eb 07/07 12:40 Order name: CBC with Diff [facility] 07/07 12:40 Order name: CMP [facility] 07/07 12:40 Order name: Lipase [facility] 07/07 12:41 Order name: Urine --Ancillary; Complete Time: 12:52 EDMS 07/07 12:40 Order name: IV Saline Lock; Complete Time: 13:01 [facility] 07/07 12:52 Order name: CT Abd/Pelvis - PO and IV Contrast [facility] 07/07 13:08 Order name: CBC with Automated Diff; Complete Time: 14:53 EDMS 07/07 13:20 Order name: Comprehensive Metabolic Panel; Complete Time: 14:53 EDMS 07/07 13:20 Order name: Lipase; Complete Time: 14:53 EDMS 07/07 15:25 Order name: CT; Complete Time: 15:43 [facility] 07/07 12:40 Order name: Labs collected and sent; Complete Time: 13:01 jl9 Administered Medications: 13:20 Drug: Ondansetron 4 mg Route: IVP; Site: right antecubital; mb9 13:25 Drug: Bentyl (dicyclomine) 20 mg Route: PO; mb9 Disposition: 19:03 Co-signature as Attending Physician, Peewee Clarke MD I agree with the assessment and kdr plan of care. Chart complete. Disposition Summary: 07/07/22 15:50 Discharge Ordered Location: Home jl9 Condition: Stable jl9 Diagnosis - Abdominal pain, unspecified jl9 Followup: jl9 - With: Private Physician - When: 1 - 2 days - Reason: Recheck today's complaints, Continuance of care, Re-evaluation by your physician Discharge Instructions: - Discharge Summary Sheet jl9 - Abdominal Pain, Adult, [id number]-[id number] jl9 Forms: - Medication Reconciliation Form jl9 - Thank You Letter jl9 - Antibiotic Education jl9 - Prescription Opioid Use jl9 Prescriptions: - ondansetron 8 mg Oral tablet,disintegrating - take 1 tablet by ORAL route every 8 hours As needed; 15 tablet; Refills: 0, jl9 Product Selection Permitted - dicyclomine 20 mg Oral Tablet - take 1 tablet by ORAL route 3 times per day As needed; 30 tablet; Refills: 0, jl9 Product Selection Permitted Signatures: Dispatcher [employer] [facility] Peewee Clarke MD MD kdr Linares, John jl9 Saundra Alvarez RN RN kb3 Shanna Nash RN RN mb9 Corrections: (The following items were deleted from the chart) 12:21 12:20 PMHx: cardiomyopathy; kb3 kb3
--- NOTE | 2022-07-07 15:50 | ER ---
Nurse's Notes [facility] Name: Kishan Parr Age: 27 yrs Sex: Female : 1995 Arrival Date: 07/07/2022 Time: 12:00 Bed 4 Private MD: Diagnosis: Abdominal pain, unspecified Presentation: 07/07 12:17 Chief complaint: Patient states: Pt reports diffuse abdominal pain described as kb3 bloating. Reports 1 episode of vomiting this a.m. and 1 episode of a small amount of liquid stool this a.m. Pt was seen in this ED 2 days ago for same symptoms. Pt has not taken any medications to relieve symptoms and has not filled Zofran rx provided. NAD. Coronavirus screen: Vaccine status: Patient reports being unvaccinated. Client denies travel out of the [place] in the last 14 days. Ebola Screen: Patient negative for fever greater than or equal to 101.5 degrees Fahrenheit, and additional compatible Ebola Virus Disease symptoms Patient denies exposure to infectious person. Patient denies travel to an Ebola-affected area in the 21 days before illness onset. No symptoms or risks identified at this time. Initial Sepsis Screen: Does the patient meet any 2 criteria? No. Patient's initial sepsis screen is negative. Does the patient have a suspected source of infection? No. Patient's initial sepsis screen is negative. Risk Assessment: Do you want to hurt yourself or someone else? Patient reports no desire to harm self or others. Onset of symptoms was July 01, 2022. 12:17 Method Of Arrival: Ambulatory kb3 12:17 Acuity: [place] 3 kb3 Triage Assessment: 12:20 General: Appears in no apparent distress. comfortable, Behavior is calm, cooperative. kb3 Pain: Complains of pain in right upper quadrant and left upper quadrant Pain does not radiate. Pain currently is 9 out of 10 on a pain scale. Quality of pain is described as pressure, Pain began 6 days ago. GI: Abdomen is flat, Reports upper abdominal pain, bloating, nausea, vomiting. 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 Last tetanus immunization: < 5 years ago. - Social history:: Smoking status: Patient reports the use of cigarette tobacco products, smokes one-half pack cigarettes per day. Screenin:00 Abuse screen: Denies threats or abuse. Nutritional screening: No deficits noted. mb9 Tuberculosis screening: No symptoms or risk factors identified. Fall Risk None identified. Assessment: 13:01 General: Appears uncomfortable, Behavior is calm, cooperative, appropriate for age. mb9 Pain: Denies pain. Neuro: Level of Consciousness is awake, alert, obeys commands, Oriented to person, place, time, situation, Appropriate for age Applications Manager are equal bilaterally. Cardiovascular: Heart tones S1 S2 present Rhythm is regular. Respiratory: Breath sounds are clear bilaterally. GI: Abdomen is flat, non-distended, Bowel sounds present X 4 quads. Abd is soft X 4 quads Abdomen is tender to palpation in left upper quadrant Reports intolerance of food, nausea, vomiting, after eating. : No signs and/or symptoms were reported regarding the genitourinary system. EENT: No signs and/or symptoms were reported regarding the EENT system. Derm: Skin is pink, warm \T\ dry. Musculoskeletal: No signs and/or symptoms reported regarding the musculoskeletal system. 13:06 Reassessment: Called CT to let them know pt finished oral contrast drink at 1305. . mb9 14:18 Neuro: Level of Consciousness is awake, alert, obeys commands, Oriented to person, mb9 place, time, situation, Appropriate for age Applications Manager are equal bilaterally. Respiratory: Breath sounds are clear bilaterally. GI: Abdomen is flat, non-distended, Bowel sounds present X 4 quads. Abd is soft X 4 quads Abdomen is tender to palpation in left upper quadrant. Derm: Skin is pink, warm \T\ dry. 15:10 Reassessment: Patient is alert, oriented x 3, equal unlabored respirations, skin aa5 warm/dry/pink. Pt back from radiology . 15:58 Neuro: Level of Consciousness is awake, alert, obeys commands, Oriented to person, mb9 place, time, situation, Appropriate for age Applications Manager are equal bilaterally. Respiratory: Breath sounds are clear bilaterally. GI: Abdomen is flat, non-distended, Bowel sounds present X 4 quads. Abd is soft X 4 quads Abdomen is tender to palpation in left upper quadrant. Derm: Skin is pink, warm \T\ dry. Vital Signs: 12:17 BP 104 / 76; Pulse 88; Resp 20; Temp 98.7; Pulse Ox 100% ; Weight 58.97 kg; Height 5 kb3 ft. 1 in. (154.94 cm); Pain 9/10; 13:09 BP 102 / 80; Pulse 73; Resp 16; Pulse Ox 100% on R/A; Pain 0/10; mb9 13:52 BP 112 / 91; Pulse 71; Resp 16; Pulse Ox 100% on R/A; Pain 0/10; mb9 15:59 BP 113 / 80; Pulse 68; Resp 16; Pulse Ox 100% on R/A; Pain 0/10; mb9 12:17 Body Mass Index 24.56 (58.97 kg, 154.94 cm) kb3 ED Course: 12:00 Patient arrived in ED. dt4 12:19 Triage completed. kb3 12:20 Arm band placed on left wrist. kb3 12:20 Bed in low position. Call light in reach. Side rails up X 1. mb9 12:40 Molina Pascal is PHCP. jl9 12:40 Peewee Clarke MD is Attending Physician. jl9 12:44 Shanna Nash, ROSALINDA is Primary Nurse. mb9 12:50 Inserted saline lock: 20 gauge in right antecubital area, using aseptic technique. mb9 Blood collected. 13:00 No provider procedures requiring assistance completed. mb9 13:01 CBC with Diff Sent. mb9 13:01 CMP Sent. mb9 13:01 Lipase Sent. mb9 16:02 IV discontinued, intact, bleeding controlled, No redness/swelling at site. Pressure mb9 dressing applied. Administered Medications: 13:20 Drug: Ondansetron 4 mg Route: IVP; Site: right antecubital; mb9 13:25 Drug: Bentyl (dicyclomine) 20 mg Route: PO; mb9 Medication: 13:00 VIS not applicable for this client. mb9 Outcome: 15:50 Discharge ordered by . jl9 16:02 Discharged to home mb9 16:02 Condition: stable 16:02 Discharge instructions given to patient, Instructed on discharge instructions, Demonstrated understanding of instructions, follow-up care, medications, Prescriptions given X 2. 16:04 Patient left the ED. mb9 Signatures: Brittany Francois, RN RN [email or web address] Molina Pascal [email or web address] Saundra Alvarez, RN RN kb3 Jo-Ann Faria dt4 Shanna Nash RN RN mb9 Corrections: (The following items were deleted from the chart) 12:20 12:17 Chief complaint: Patient states: Pt reports diffuse abdominal pain described as kb3 bloating. Reports 1 episode of vomiting this a.m. and 1 episode of a small amount of liquid stool this a.m. Pt was seen in this ED 2 days ago for same symptoms. kb3 12:21 12:20 PMHx: cardiomyopathy; kb3 kb3
[2022-07-08 05:12] VITALS: TEMP 98.7; O2SAT 100
[2022-07-08 05:16] VITALS: BP 113/80
== END 2022-07-07 16:04 | disposition home or self-care (01) ==
LOC: ER 11:57
DX: R10.9 Unspecified abdominal pain (principal); R19.7 Diarrhea, unspecified; F17.210 Nicotine dependence, cigarettes, uncomplicated
CPT/HCPCS: 36415; 74177; 80053; 81003; 81025; 83690; 85025; 96374; 99284; J2405; Q9967

== ENCOUNTER 2023-08-10 14:56 | Emergency (ER) | payer SELFPAY ==
--- OUTSIDE RECORDS SUMMARY | 2023-08-10 15:39 | XMS REPORT | Continuity of Care Document ---
:1995 Author Organization [facility] t Address [address] [place] [address] [place] [id number] Care Team Providers Name Role Phone PCP, PATIENT DOES NOT HAVE A Primary Care Physician UnavailGarrett Fragoso Attending Clinician Unavailable [email or web address]_Sameeraa_S Attending Clinician Unavailable SIGIFREDO GUNDERSON Attending Clinician Unavailable Sigifredo Gunderson MD Attending Clinician MURTAZA LAYNE Attending Clinician Unavailable Murtaza Layne MD Attending Clinician Diony Hicks Attending Clinician Unavailable Lauryn Page MD Attending Clinician LAURYN PAGE Attending Clinician Unavailable Garrett Tse Admitting Clinician Unavailable [email or web address]_Sameeraa_S Admitting Clinician Unavailable SIGIFREDO GUNDERSON Admitting Clinician Unavailable MURTAZA LAYNE Admitting Clinician Unavailable Diony Hicks Admitting Clinician Unavailable Lauryn Page MD Admitting Clinician LAURYN PAGE Admitting Clinician Unavailable Trinity Méndez Admitting Clinician Unavailable Payers Payer Name Policy Type Policy Number Effective Date Expiration Date Duong nguyen REPLACED BY [facility] [id number] 2021 CHOICE [place] STAR 00:00:00 Problems Condition Condition Condition Status Onset Resolution Last Treating Co mments Source Name Details Category Date Date Treatment Clinician Date Urinary Urinary Disease Active Univers tract tract 6-08 [place] 00 [facility] during during Branch , , antepartum antepartum Disease Active Univers uterine uterine 604 [place]y of contract[place] 00 Medical third third Branch trimester, trimester, antepartum antepartum Acute Acute Disease Active Univers cystitis cystitis 604 ity of with with 00:00: [place] hematuria hematuria [facility] Acute left Acute left Disease Active U nivers flank pain flank pain 6-04 it y of 00:00: [place] [address] [place] [address] Branch 29 weeks 29 weeks Disease Active Unive rs gestation gestation 604 ity of of of 00:00: [place] [facility] Allergies, Adverse Reactions, Alerts Allergy Allergy Status Severity Reaction(s) Onset Inactive Treating Comm ents Source Name Type Date Date Clinician No Known DA Active U 2020-10 [facility]11 [facility] 00 [facility] No Known DA Active U [facility] All[facility]ie 8-09 [facility] 00 [facility] No Known DA Active U [facility] Allergie 8 [facility] 00:[facility]: [facility] 00 [facility] NO KNOWN Drug Active Univers ALLERGIE Class ity of S [facility] Social History Social Habit Start Date Stop Date Quantity Comments Source Exposure to 2022-09-06 2022-09-16 Not sure [facility] SARS-CoV-2 (event) 00:00:00 12:26:00 Medica l Branch Sex Assigned At [birth year] [facility] [place] 00:00:00 00:00:00 Medical Branch Smoking Status Start Date Stop Date Source Tobacco smoking consumption [facility] Medical unknown Branch Medications Ordered Filled Start Stop Current Ordering Indication Dosage Frequency Signature Comments Components Source Medication Medication Date Date Medication? Clinician (SIG) Name Name HYDROcodone 2021-10- No 1{tbl} 1 tablet, Univers -acetaminop 2-10 12-10 Oral, ONCE i ty of hen (NORCO) 20:15: 19:22 NOW, 1 Otto as 10-325 mg 00 :00 dose, On Medica l tablet 1 Sat Branch tablet 09/16/22 at 1415, Routine ondansetron 2021-10- No 4mg 4 mg, Univ ers (ZOFRAN-ODT 2-10 12-10 Oral, ity of ) 20:00: 19:21 ONCE, 1 [place] disintegrat 00 :00 dose, On Medi francis ing tablet Sat Branch 4 mg 09/16/22 at 1400, Routine amoxicillin 2021-10 Yes [id number] 1{tbl} Take 1 Univers -clavulanat 2-10 tablet by ity of e 875-125 00:00: mouth [place] mg per 00 every 12 Medical tablet (twelve) Branch hours. ibuprofen 2021-10 Yes [id number] 800mg Take 1 Univers 800 mg 2-10 [id number] tablet by ity of tablet 00:00: mouth [place] 00 every 8 Medical (eight) Branch hours as needed for Pain (scale 4-6). No known No No known Unive rs medications 7-20 medication it y of 19:30: s [address] No known No Univers medications 9-17 ity of 20:46: [address] No known No Univers medications 9-17 ity of 20:46: [address] Vital Signs Vital Name Observation Time Observation Value Comments Source Systolic blood 2022-09-16 18:28:00 127 mm[Hg] Univer [facility]ity of [facility] Diastolic blood 2022-09-16 18:28:00 82 mm[Hg] Unive rsity [facility] Heart rate 2022-09-16 18:28:00 78 /min [facility] Body temperature 2022-09-16 18:28:00 37.22 [facility] Respiratory rate 2022-09-16 18:28:00 18 /min [facility] Body height 2022-09-16 18:28:00 154.9 cm [facility] [place] [facility] Body weight 2022-09-16 18:28:00 58.06 kg [facility] [place] [facility] BMI 2022-09-16 18:28:00 24.19 kg/m2 [facility] [place] [facility] Oxygen saturation in 2022-09-16 18:28:00 100 /min University of Arterial blood by [facility] Pulse oximetry Branch Systolic blood 2022-04-27 01:00:00 104 mm[Hg] Univer sity of pressure [place] [facility] Diastolic blood 2022-04-27 01:00:00 74 mm[Hg] Unive rsity of pressure [place] [facility] Heart rate 2022-04-27 01:00:00 81 /min [facility] [place] [facility] Respiratory rate 2022-04-27 01:00:00 18 /min Univ ers[facility] [place] [facility] Oxygen saturation in 2022-04-27 01:00:00 100 /min University of Arterial blood by [facility] Pulse oximetry Branch Body temperature 2022-04-26 23:32:00 37.44 Marisol Univ ersity [facility] [place] [facility] Body height 2022-04-26 23:32:00 154.9 cm [facility] [place] [facility] Body weight 2022-04-26 23:32:00 58.968 kg [facility] [place] [facility] BMI 2022-04-26 23:32:00 24.56 kg/m2 [facility] [place] [facility] Heart rate 2021-06-25 01:15:00 75 /min [facility] [place] [facility] Oxygen saturation in 2021-06-25 01:10:00 100 /min University of Arterial blood by [facility] Pulse oximetry Branch Systolic blood 2021-06-24 23:45:00 109 mm[Hg] Univer sity of pressure [place] [facility] Diastolic blood 2021-06-24 23:45:00 62 mm[Hg] Unive rsity of pressure [place] [facility] Body temperature 2021-06-24 23:45:00 37.39 Marisol Univ [facility] [place] [facility] Respiratory rate 2021-06-24 23:20:00 16 /min Univ ers[facility] [place] [facility] Body height 2021-06-24 23:20:00 154.9 cm [facility] [place] [facility] Body weight 2021-06-24 23:20:00 66.679 kg [facility] BMI 2021-06-24 23:20:00 27.78 kg/m2 [facility] Procedures Procedure Date / Time Performed Performing Clinician Sourc e CT CERVICAL SPINE WO 2022-09-16 19:39:18 Sigifredo Gunderson [facility] CONTRAST Medical Branch CT 2022-09-16 19:39:18 Sigifredo Gunderson [facility] MAXILLOFACIAL/MANDIBLE Medical B ranch WO CONTRAST CT HEAD WO CONTRAST 2022-09-16 19:39:18 Sigifredo Gunderson [facility] POCT TEST 2022-09-16 19:21:00 Sigifredo Gunderson [facility] NOTICE OF PRIVACY 2022-09-16 18:20:32 Doctor Unassigned, No Univ [facility] Name Medical Branch CONSENT/REFUSAL FOR 2022-09-16 18:18:52 Doctor Unassigned, No [facility] [place] DI[facility]NOSIS AND Name Medical Branch TREATMENT URINALYSIS 2022-04-27 01:21:00 Murtaza Layne [facility] TROPONIN I 2022-04-27 00:23:00 Murtaza Layne [facility] BASIC METABOLIC PANEL 2022-04-27 00:23:00 Murtaza Layne [facility] (NA, K, CL, CO2, Medical Branch GLUCOSE, BUN, CREATININE, CA) CBC WITH DIFF 2022-04-27 00:23:00 Murtaza Layne [facility] D-DIMER 2022-04-27 00:23:00 Murtaza Layne [facility] XR CHEST 1 VW 2022-04-27 00:18:34 Murtaza Layne [facility] CONSENT/REFUSAL FOR 2022-04-26 23:26:40 Doctor Unassigned, No [facility] Medical Branch TREATMENT [id number] 2021-09-03 [facility]:00[facility] (ID NOW RAPID 2021-06-25 00:42:00 Lauryn Page [facility] TESTING) Medical Branch NOTICE OF PRIVACY 2021-06-24 23:13:22 Doctor Unassigned, No [facility] Name [facility] Branch CONSENT/REFUSAL FOR 2021-06-24 23:11:45 Doctor Unassigned, No [facility] Name Medical Branch TREATMENT Encounters Start End Encounter Admission Attending Care Care Encounter Source Date/Time Date/Time Type Type Clinicians Facility Department ID 2021-09-07 Inpatient LIBORIO Alvarez LD [id number] [facility] 10:00:00 Marrichard [facility] [place] 2023-08-08 2023-08-08 Outpatient [email or web address] PRIV PRIV [id number] [facility] 00:00:00 00:00:00 nikolas_S [id number] Medic al 2022-09-16 2022-09-16 Emergency X [facility] ERT [id number] Univers 12:29:00 15:06:00 SIGIFREDO olivas [facility] 2022-09-16 2022-09-16 Emergency [facility] [id number] Univers 12:29:00 15:06:00 Sigifredo SINGH 350.1.13.10 ity [facility] 4.2.7.2.686 [facility] [id number] [address] 2022-04-26 2022-04-26 Emergency X [facility] ERT [id number] Univers 18:42:00 22:00:00 MURTAZA olivas [facility] 2022-04-26 2022-04-26 Emergency [facility] [id number] Univers 18:42:00 22:00:00 Murtaza SINGH 350.1.13.10 i ty [facility] 4.2.7.2.686 [facility] [id number] [address] 2021-09-03 2021-09-05 Emergency LIBORIO Summers OBPP [id number] [facility] 01:41:00 19:53:00 Ziad 51 [facility] 2021-08-31 2021-08-31 Inpatient LIBORIO Leon RADI [id number] [facility] 11:15:00 11:15:00 Ziad 97 [facility] 2021-08-18 2021-08-18 Emergency EM CHASE Hicks [place] [id number] [facility] 17:35:00 21:43:00 Ziad 87 [facility] 2021-06-24 2021-06-24 Emergency Lauryn Page [facility] [id number] [facility] 18:26:00 20:53:00 [place] 350.1.13.10 i ty [facility] 4.2.7.2.686 [facility] [id number] [address] 2021-06-24 2021-06-24 Outpatient X LAURYN PAGE [facility] JAIME [id number] [facility] 18:26:00 18:26:00 ity [facility] 2021-04-18 2021-04-18 Outpatient EL Kurt [facility] RADI [id number] [facility] 11:03:00 11:03:00 Zi 79 [facility]' s [facility] Results Test Description Test Time Test Comments Results Result Comments Source POCT TEST 2022-09-16 19:21:00 Test Item Value Reference Range Interpretation Comme nts POCT PREG (test code = 1605) Negative On board controls acceptable with C Line (test code = 3574) Present POCT PREG LOT # (test code = 3575) [id number] POCT PREG TEST DATE (test code = 3576) 01-06-2024 Lab Interpretation (test code = 54274-2) [facility]2021-12-06 17:25:00 Test Item Value Reference Range Interpretation Comments SURGICAL (test code = SR) -----RUN DATE: 09/12/21 [facility] PAGE 1 RUN TIME: 1725 Specimen Inquiry RUN USER: INTERFACE -----PATIENT: NABILA MEJIAS LOC: WALKERFELISHA U #: [id number] AGE/SX: ROOM: [facility] RE09/03/21REG DR: Diony Hicks MD : 89 BED: A DIS: 09/05/21 STATUS: DIS IN TLOC: ----- SPEC #: [id number] RECD: 09/05/21 STATUS: PRANAV KERR #: [id number] JORGE L: 09/02/21- SUBM DR: Diony Hicks MD ENTERED: 09/05/21 SP TYPE: SURGICAL OTHR DR: DOES_NOT KNOW ORDERED: ANATOMIC SPEC, SPEC TRACK, [id number] CODES: [id number] - PLACENTA, NOS COPIES TO: DOES_NOT KNOW Diony Hicks MD [address] [place] [address] PROCEDURES: [id number] (09/12/21-1721) TISSUES: PLACENTA, NOS - PP CARDIOMYOPATHY, IAB 120, FINAL DIAGNOSIS PLACENTA :- Mature villous morphology, 605 grams, ( 90th percentile for gestational age). - Mild multifocal villitis of undetermined etiology.- Three vessel umbilical cord with no significant diagnostic abnormalities. - membranes with abundant pigmented amnionic macrophages. GROSS DESCRIPTION Received in formalin is a garcia placenta with the placental disc measuring 19 x 19 x 2cm and weighing 605 gm with a 1.4 cm in diameter by 15 cm length eccentric 3 cm from edge,3 vessel cord with appropriate spiraling. The membranes are [place] and opaque with marginalinsertion with the site of rupture 1 cm from the placental disc. The placental disc has abeefy red cut surface with no gross lesions. Oxidation Engineer sections are submitted asfollows: A1: Membrane roll and cordA2: Full thickness placental discA3: Full thickness placental disc at edge LC Technical component performed at [employer],[id number] , [place] [address] Unless gross only, the diagnosis is based upon microscopic examination. CONTINUED ON NEXT PAGE -----RUN DATE: 09/12/21 [facility] PAGE 2 RUN TIME: 1725 Specimen Inquiry RUN USER: INTERFACE -----SPEC #: [id number] PATIENT: NABILA MEJIAS #[id number] (Continued) GROSS DESCRIPTION (Continued) Immunohistochemistry: This test was developed and its performance characteristicsdetermined by this laboratory. It has not been approved nor does it need approval by [place] FDA. Appropriate positive and negative controls are reviewed and judged to beacceptable. This laboratory is certified under the Clinical Laboratory ImprovementAmendments (CLIA-88) as qualified to perform high complexity clinical laboratory testing. CLINICAL INFORMATION PRE-C Signed ___ MacielKirstie 09/12/21 1725 ----- END OF REPORT HGB [id number] 04:48:00 Test Item Value Reference Range Interpretation Comments HEMOGLOBIN (test code = HGB) 7.7 g/dL 10.1-13.8 L HEMATOCRIT (test code = HCT) 23.8 % 32.5-41.8 L CAPILLARY BLOOD [id number] 03:26:00 Test Item Value Reference Range Interpretation [...] 21.0 % code = FIO2C) ARTERIAL BLOOD [id number] 03:26:00 Test Item Value Reference Range Interpretation [...] FIO2 (test code = FIO2A) 21.0 % PaO2/[id number] 03:26:00 Test Item Value Reference Range Interpretation Comments PaO2/FiO2 (test code = HDI8RLY2) 78.50 mm/Hg AG HEPATITIS B [id number] 17:32:00 Test Item Value Reference Range Interpretation Comments AG HEPATITIS B SURFACE (test code NONREACTIVE NONREACTIVE = HBSAG) AB HEPATITIS C [id number] 17:32:00 Test Item Value Reference Range Interpretation Comments AB HEPATITIS C (test code = NONREACTIVE NONREACTIVE HCVAB) SIGNAL TO CUTOFF (test code = <0.02 <0.80 N CUTOFF) AB [id number] 17:32:00 Test Item Value Reference Range Interpretation Comments AB TREPONEMA (test code = TREPAB) NONREACTIVE NONREACTIVE AB HIV 1 17:32:00 Test Item Value Reference Range Interpretation Comments AB HIV 1 2 (test NONREACTIVE NONREACTIVE Done by [facility] code = CML39FH) 4th Gen HIV Ag/Ab Combo Screen COVID 19 Asymptomatic IH [id number] 17:16:00 Test Item Value Reference Range Interpretation [...] of Accreditation. This test is only authori zed for the duration of thedeclaration that circumstances e xist justifying theauthorizatio n of emergency use o f in vitro diagnostic test sfor detection and/o r diagnosis of CO VID-19 under Dghbtvh46 4(b)(1) of the Act, 21 U.S .C. 360bbb-3(b)(1), unless theauthorizatio n is terminated or r evoked sooner. CBC W/AUTO [id number] 15:14:00 Test Item Value Reference Range Interpretation [...] (test NORMAL NORMAL code = PLTMR) URINALYSIS [id number] 20:22:00 Test Item Value Reference Range Interpretation [...] = MUCU) 1+ NONE SEEN RUPTURE OF [id number] 18:38:00 Test Item Value Reference Range Interpretation Comments RUPTURE OF MEMBRANES (test code NON-RUPTURED = ROM) - US FET BIO PH SD W/O [id number] 00:00:00 [facility] : 1995 Sex: F Patient Name: NABILA MEJIAS Unit No: [id number] EXAMS: CPT CODE: [id number] US FET BIO PH SD W/O NST [id number] INFORMATION: Exam: US Biophysical Profile Without Non-Stress [...] currently in breech position with heart tones of 122 bpm. Anterior grade 2 placenta is seen. No placenta previa identified. The cervix measures 4.7 cm length. Amniotic fluid index measures 24.5 cm. BIOPHYSICAL PROFILE: Breathin/2 Gross fetalbody movements: 2/2 tone: 2/2 Qualitative amniotic fluid: 2/2 Biophysical Profile Score: 8/8 IMPRESSION: 1. Biophysical profile score of 8/8. 2. Polyhydramnios. at 2006 Reported and signed by: Niels Arcos MD CC: Diony Hicks MD;Caryl Rand Jhajj ; Kris Wild III, MD Technologist: Reza Mccauley RDMS Probe: Trnscrbd D/ (2005) GCD.CPS Orig Print D/T: S: 08/19/2021 (1525) [facility] NAME: NABILA MEJIAS Radiology Department PHYS: Kris Gilbert III, MD [address] : 1995 AGE: 26 SEX: F [place] [address] LOC: Luis.PEYTON PHONE #: [phone] EXAM DATE: 08/18/2021 STATUS: DEP ER FAX #: [phone] RAD NO: Page 1 Signed Report Patient Name: MEJIAS,NABILA Unit No: [id number] EXAMS: CPT CODE: [id number] [facility] BIO PH SD W/O NST 21028 (Continued) [facility] NAME: NABILA MEJIAS Radiology Department PHYS: Kris Gilbert III, MD [address] : 1995 AGE: 26 SEX: F [place] [address] LOC: Luis.[place] PHONE #: [phone] EXAM DATE: 08/18/2021 STATUS: DEP ER FAX #: [phone] RAD NO: Page 2 Signed Report
--- NOTE | 2023-08-10 15:41 | RAD REPORT ---
EXAM DESCRIPTION: US - Transvaginal Study Probe - 08/10/2023 3:24 pm CLINICAL HISTORY: Vaginal bleeding COMPARISON: 2013 FINDINGS: The uterus measures 6 x 4 x 5 cm. A fibroid is not seen. The endometrial stripe measures 6 millimeters. The uterus is retroverted 2.2 centimeter nabothian cyst cervix The ovaries are normal in size and echotexture. The right and left adnexa unremarkable No significant free fluid is seen. IMPRESSION: Large nabothian cyst cervix No acute abnormality is displayed
--- NOTE | 2023-08-10 16:03 | RAD REPORT ---
EXAM DESCRIPTION: CT - Head Brain Wo Cont - 08/10/2023 3:35 pm CLINICAL HISTORY: Headache COMPARISON: none TECHNIQUE: Computed axial tomography of the head was obtained. IV contrast was not requested. All CT scans are performed using dose optimization technique as appropriate and may include automated exposure control or mA/KV adjustment according to patient size. FINDINGS: An intracranial bleed is not seen The ventricles are normal in caliber No significant hypodense areas within the brain visualized No extra-axial fluid collection is noted. Fluid within the sinuses/ mastoids is not seen IMPRESSION: No acute intracranial abnormality is seen If patient's symptoms persist MRI of the brain would be recommended
[2023-08-10] MEDS ORDERED: DIPHENHYDRAMINE 50 MG/ML VIAL ONE (17:03)
[2023-08-10] MEDS ORDERED: NA CHLORIDE 0.9% 1,000 ML ONE (17:03)
[2023-08-10] MEDS ORDERED: METHYLPREDNISOLONE 125 MG INJ ONE (17:03)
[2023-08-10 17:10] LABS: Absolute Lymphocytes (CBC) 1.8 K/uL (0.7-4.9); Hematocrit 36.7 % (36.0-45.0); Lymphocytes % 24.7 % (15.3-44.8); MCV 87.8 fL (80-100); MPV 7.2 fL (7.6-11.3); Platelets 441 thou/uL (152-406); RBC Red Blood Cell Count 4.18 M/uL (3.86-4.86)
[2023-08-10 17:23] LABS: Potassium 3.8 mEq/L (3.5-5.1)
[2023-08-10 17:27] LABS: Specific Gravity 1.024 (1.005-1.030); Urine Bacteria None Seen /HPF (<20); Urine Bilirubin NEGATIVE (Negative); Urine Blood 3+ (OVER) (Negative); Urine Clarity Extremely Turbid (Clear); Urine Color Light-Orange (Yellow); Urine Glucose NEGATIVE (Negative); Urine Mucus 2+ /HPF (None Seen); Urine Protein TRACE (Negative); Urine RBC >50 /HPF (None Seen); Urine Urobilinogen Normal (Normal); Urine pH 5.5 (5.0-7.0)
--- NOTE | 2023-08-10 17:41 | ER ---
Nurse's Notes [facility] Name: Kishan Parr Age: 28 yrs Sex: Female : 1995 Arrival Date: 08/10/2023 Time: 14:56 Bed 14 Private MD: Diagnosis: Menorrhagia;Tension-type headache Presentation: 08/10 15:48 Chief complaint: Patient states: headache onset yesterday at 0400 and vaginal bleeding. cm10 Pt states that she is on her period and she is bleeding more than normal. Coronavirus screen: Vaccine status: Patient reports being unvaccinated. Client denies travel out of the [place] in the last 14 days. Ebola Screen: Patient denies travel to an Ebola-affected area in the 21 days before illness onset. No symptoms or risks identified at this time. Initial Sepsis Screen: Does the patient meet any 2 criteria? No. Patient's initial sepsis screen is negative. Does the patient have a suspected source of infection? No. Patient's initial sepsis screen is negative. Risk Assessment: Do you want to hurt yourself or someone else? Patient reports no desire to harm self or others. Onset of symptoms was August 10, 2023. 15:48 Method Of Arrival: Ambulatory cm10 15:48 Acuity: [place] 3 cm10 Historical: - Allergies: 15:50 No Known Allergies; cm10 - Home Meds: 15:50 None [Active]; cm10 - PMHx: 15:50 None; cm10 - PSHx: 15:50 section; cm10 - Immunization history:: Adult Immunizations unknown. - Social history:: Smoking status: Reported history of juuling and/or vaping. Screenin:17 [facility] ED Fall Risk Assessment (Adult) History of falling in the last 3 months, db including since admission No falls in past 3 months (0 pts) Confusion or Disorientation No (0 pts) Intoxicated or Sedated No (0 pts) Impaired Gait No (0 pts) Mobility Assist Device Used No (0 pt) Altered Elimination No (0 pt) Score/Fall Risk Level 0 - 2 = Low Risk Oriented to surroundings, Maintained a safe environment. Abuse screen: Denies threats or abuse. Denies injuries from another. Nutritional screening: No deficits noted. Tuberculosis screening: No symptoms or risk factors identified. Assessment: 15:33 Reassessment: PT in [place] at this time. cm10 17:14 Reassessment: Patient appears in no apparent distress at this time. Patient and/or db family updated on plan of care and expected duration. Pain level reassessed. Patient is alert, oriented x 3, equal unlabored respirations, skin warm/dry/pink. General: Appears uncomfortable, Behavior is cooperative, anxious. Pain: Complains of pain in head. Neuro: Level of Consciousness is awake, alert, obeys commands, Oriented to person, place, time, situation. Respiratory: Airway is patent Respiratory effort is even, unlabored, Respiratory pattern is regular, symmetrical. GI: Abdomen is flat. : Reports vaginal bleeding that is heavy flow. 17:45 Reassessment: Patient appears in no apparent distress at this time. Patient and/or db family updated on plan of care and expected duration. Pain level reassessed. Patient is alert, oriented x 3, equal unlabored respirations, skin warm/dry/pink. Patient states feeling better. Patient states symptoms have improved. Vital Signs: 15:48 BP 124 / 91; Pulse 79; Resp 18; Temp 98.4; Pulse Ox 100% ; Weight 63.5 kg; Height 5 ft. cm10 0 in. ; Pain 6/10; 17:08 BP 123 / 107 Sitting; Pulse 112; Resp 18; Pulse Ox 100% on R/A; db 17:30 BP 114 / 61; Pulse 93; Resp 16; Pulse Ox 100% ; db 17:46 BP 174 / 88; Pulse 95; Resp 16; Pulse Ox 99% on R/A; db 15:48 Body Mass Index 27.34 (63.50 kg, 152.4 cm) cm10 15:48 Pain Scale: Adult cm10 17:08 CRYING db ED Course: 14:58 Patient arrived in ED. rg4 14:58 Junito Pandey MD is Attending Physician. rn 14:58 [facility] jh7 15:20 Radiology exam delayed due to patient in Ultrasound at this time. ls3 15:26 US Transvaginal Study (Probe) In Process Unspecified. EDMS 15:[address] via wheelchair. ls3 15:34 CT completed. Patient tolerated procedure well. ls3 15:35 Patient moved back from radiology. ls3 15:36 CT Head Brain wo Cont In Process Unspecified. EDMS 15:50 Triage completed. cm10 15:50 Arm band placed on Patient placed in waiting room. cm10 16:43 Nivia Cloud, RN is Primary Nurse. db 17:04 Inserted saline lock: 20 gauge in left antecubital area, using aseptic technique. aw1 17:04 Initial lab(s) drawn, by me, sent to lab. aw1 17:04 Urine collected: clean catch specimen, clear. aw1 17:17 Patient has correct armband on for positive identification. Bed in low position. Call db light in reach. Side rails up X 1. Pulse ox on. NIBP on. Warm blanket given. 17:45 Provided Education on: DISCHARGE. db 17:45 No provider procedures requiring assistance completed. IV discontinued, intact, db bleeding controlled, No redness/swelling at site. Administered Medications: 17:00 Drug: NS 0.9% IV 1000 ml IV at 1 bolus Per protocol; 1000 mL bolus Route: IV; Rate: 1 db bolus; Site: left antecubital; 17:45 Follow up: Response: No adverse reaction; IV Status: Completed infusion; IV Intake: db 1000ml 17:00 Drug: MethylPrednisoLONE IVP 125 mg IVP once Route: IVP; Site: left antecubital; db 17:45 Follow up: Response: No adverse reaction db 17:00 Drug: diphenhydrAMINE IVP 25 mg IVP once Route: IVP; Site: left antecubital; db 17:45 Follow up: Response: No adverse reaction db Medication: 17:17 VIS not applicable for this client. db Intake: 17:45 IV: 1000ml; Total: 1000ml. db Outcome: 17:40 Discharge ordered by . tate 17:45 Discharged to home ambulatory, with family, db 17:45 Condition: stable 17:45 Discharge instructions given to patient, Instructed on discharge instructions, follow up and referral plans. 17:46 Patient left the ED. db Signatures: Dispatcher [employer] EDMS Junito Pandey MD MD rn Garcia, Rubi rg4 Tatiana Light ls3 Dayanna Orlando, B[employer] B[employer]CH [employer] B[employer]R BENCH HAND jh7 Nivia Cloud, RN RN Sondra Tyson RN RN 10 Rachel Mancilla aw1 Corrections: (The following items were deleted from the chart) 15:34 15:33 Patient moved to [place] via wheelchair. ls3 ls3
--- NOTE | 2023-08-10 17:41 | EDPHYS ---
Physician Documentation [facility] Name: Kishan Parr Age: 28 yrs Sex: Female : 1995 Arrival Date: 08/10/2023 Time: 14:56 Bed 14 Private MD: ED Physician Jnuito Pandey HPI: 08/10 14:58 This 28 yrs old Female presents to ER via Unassigned with complaints of Headache, jh7 Vaginal Bleeding. 14:58 28-year-old female presents to the ER complaining of headache and profuse vaginal jh7 bleeding. Reports that she was diagnosed with shingles 1 week ago and that yesterday she feels that she may have had a thunderclap headache. Reports that it was the worst headache of her life, and that it is slightly improved today. Also reports that she started her menstrual cycle today, and is experiencing an unusually heavy. With abdominal cramping. Reports that she has gone through 7 pads within the last hour. No other medical problems.. Historical: - Allergies: 15:50 No Known Allergies; cm10 - Home Meds: 15:50 None [Active]; cm10 - PMHx: 15:50 None; cm10 - PSHx: 15:50 section; cm10 - Immunization history:: Adult Immunizations unknown. - Social history:: Smoking status: Reported history of juuling and/or vaping. ROS: 14:58 Constitutional: Negative for fever, chills, and weight loss, Eyes: Negative for injury, jh7 pain, redness, and discharge, Neck: Negative for injury, pain, and swelling, Cardiovascular: Negative for chest pain, palpitations, and edema, Respiratory: Negative for shortness of breath, cough, wheezing, and pleuritic chest pain, Back: Negative for injury and pain, MS/Extremity: Negative for injury and deformity, Skin: Negative for injury, rash, and discoloration, 14:58 Abdomen/GI: Positive for abdominal cramps, Negative for nausea, vomiting, and diarrhea, 14:58 : Positive for vaginal bleeding, Negative for urinary symptoms, 14:58 Neuro: Positive for headache, Negative for altered mental status, dizziness, loss of consciousness, speech changes, syncope, visual changes, 14:58 All other systems are negative, Exam: 14:58 Constitutional: This is a well developed, well nourished patient who is awake, alert, jh7 and in no acute distress. Head/Face: Normocephalic, atraumatic. Eyes: Pupils equal round and reactive to light, extra-ocular motions intact. Lids and lashes normal. Conjunctiva and sclera are non-icteric and not injected. Cornea within normal limits. Periorbital areas with no swelling, redness, or edema. Neck: Trachea midline, no thyromegaly or masses palpated, and no cervical lymphadenopathy. Supple, full range of motion without nuchal rigidity, or vertebral point tenderness. No Meningismus. Cardiovascular: Regular rate and rhythm with a normal S1 and S2. No gallops, murmurs, or rubs. Normal PMI, no JVD. No pulse deficits. Respiratory: Lungs have equal breath sounds bilaterally, clear to auscultation and percussion. No rales, rhonchi or wheezes noted. No increased work of breathing, no retractions or nasal flaring. Abdomen/GI: Soft, non-tender, with normal bowel sounds. No distension or tympany. No guarding or rebound. No evidence of tenderness throughout. Skin: Warm, dry with normal turgor. Normal color with no rashes, no lesions, and no evidence of cellulitis. MS/ Extremity: Pulses equal, no cyanosis. Neurovascular intact. Full, normal range of motion. Neuro: Awake and alert, GCS 15, oriented to person, place, time, and situation. Cranial nerves II-XII grossly intact. Motor strength 5/5 in all extremities. Sensory grossly intact. Cerebellar exam normal. Normal gait. Vital Signs: 15:48 BP 124 / 91; Pulse 79; Resp 18; Temp 98.4; Pulse Ox 100% ; Weight 63.5 kg; Height 5 ft. cm10 0 in. ; Pain 6/10; 17:08 BP 123 / 107 Sitting; Pulse 112; Resp 18; Pulse Ox 100% on R/A; db 17:30 BP 114 / 61; Pulse 93; Resp 16; Pulse Ox 100% ; db 17:46 BP 174 / 88; Pulse 95; Resp 16; Pulse Ox 99% on R/A; db 15:48 Body Mass Index 27.34 (63.50 kg, 152.4 cm) cm10 15:48 Pain Scale: Adult cm10 17:08 CRYING db MDM: 14:58 Patient medically screened. rn 08/10 15:05 Order name: Basic Metabolic Panel; Complete Time: 17:37 [facility] 08/10 15:05 Order name: CBC with Diff; Complete Time: 17:37 [facility] 08/10 15:05 Order name: Urinalysis w/ reflexes; Complete Time: 17:37 [facility] 08/10 15:05 Order name: Type And Screen [facility] 08/10 15:05 Order name: CT Head Brain wo Cont; Complete Time: 16:03 [facility] 08/10 15:05 Order name: US Transvaginal Study (Probe); Complete Time: 15:59 [facility] 08/10 15:05 Order name: IV Saline Lock; Complete Time: 17:03 [facility] 08/10 15:05 Order name: Labs collected and sent; Complete Time: 17:03 [facility] 08/10 15:05 Order name: NPO; Complete Time: 17:12 [facility] 08/10 17:41 Order name: Recheck Vital Signs; Complete Time: 17:56 [facility] Administered Medications: 17:00 Drug: NS 0.9% IV 1000 ml IV at 1 bolus Per protocol; 1000 mL bolus Route: IV; Rate: 1 db bolus; Site: left antecubital; 17:45 Follow up: Response: No adverse reaction; IV Status: Completed infusion; IV Intake: db 1000ml 17:00 Drug: MethylPrednisoLONE IVP 125 mg IVP once Route: IVP; Site: left antecubital; db 17:45 Follow up: Response: No adverse reaction db 17:00 Drug: diphenhydrAMINE IVP 25 mg IVP once Route: IVP; Site: left antecubital; db 17:45 Follow up: Response: No adverse reaction db Disposition: 08/11 06:58 Co-signature as Attending Physician, Junito Pandey MD I reviewed the patient's care rn provided by the Advanced Practice Provider and agree with the diagnosis and treatment plan. Disposition Summary: 08/10/23 17:40 Discharge Ordered Notes: Location: Home [facility] Problem: new [facility] Symptoms: have improved [facility] Condition: Stable [facility] Diagnosis - Menorrhagia 7 - Tension-type headache [facility] Followup: [facility] - With: Private Physician - When: 2 - 3 days - Reason: Recheck today's complaints Discharge Instructions: - Discharge Summary Sheet jh7 - General Headache Without Cause jh7 - Menorrhagia [facility] Forms: - Medication Reconciliation Form 7 - Thank You Letter 7 - Patient Portal Instructions [facility] - Leadership Thank You Letter [facility] Signatures: Dispatcher [employer] Junito Manriquez MD MD rn Hadash, Jennifer, BABY COUNSELOR BABY COUNSELOR [facility] Nivia Cloud RN RN db Sondra Sam RN RN cm10
[2023-08-10 18:03] VITALS: TEMP 98.4; O2SAT 100
[2023-08-10 18:05] VITALS: BP 123/107
== END 2023-08-10 17:46 | disposition home or self-care (01) ==
LOC: ER 14:56
DX: G44.209 Tension-type headache, unspecified, not intractable (principal); N92.0 Excessive and frequent menstruation with regular cycle; F17.290 Nicotine dependence, other tobacco product, uncomplicated
CPT/HCPCS: 36415; 70450; 76830; 80048; 81001; 85025; 86850; 86900; 86901; 96361; 96374; 96375; 99285; J1200; J2930; J7030